=== PATIENT | male | born 1950 | race Caucasian/White ===

== ENCOUNTER → 2020-08-25 09:07 | Outpatient (BNVA) | payer MEDICARE, BC, SELFPAY | PROVIDERS: PCP Nurse Practitioner Family; Visit Provider Internal Medicine Cardiovascular Disease | DX: I42.6 Alcoholic cardiomyopathy (principal); I71.4 Abdominal aortic aneurysm, without rupture; I10 Essential (primary) hypertension | CPT/HCPCS: 99212 ==

== ENCOUNTER 2020-09-01 08:55 | Outpatient (REF) | payer MEDICARE, SELFPAY ==
--- NOTE | 2020-09-01 08:56 | XR_ITS ---
EXAMINATION: STANDING VIEWS OF BOTH KNEES AND DEDICATED VIEWS OF THE RIGHT KNEE. CLINICAL INFORMATION: Knee pain. COMPARISON: Right knee radiographs on 04/20/2020 TECHNIQUE: AP standing views of both knees. Lateral and sunrise views of the right knee. FINDINGS: No fracture or dislocation identified on standing views. Bilateral, tricompartmental degenerative changes are mild in extent. No suspicious osseous lesions identified. Dedicated views of the right knee demonstrates a small suprapatellar effusion. Again no acute osseous injury identified. Vascular calcifications are seen within the popliteal fossa. XR/XR knee RT 2V IMPRESSION: Mild degenerative changes. Small right suprapatellar effusion. No evidence of acute osseous injury.
--- NOTE | 2020-09-01 08:56 | XR_ITS ---
EXAMINATION: STANDING VIEWS OF BOTH KNEES AND DEDICATED VIEWS OF THE RIGHT KNEE. CLINICAL INFORMATION: Knee pain. COMPARISON: Right knee radiographs on 04/20/2020 TECHNIQUE: AP standing views of both knees. Lateral and sunrise views of the right knee. FINDINGS: No fracture or dislocation identified on standing views. Bilateral, tricompartmental degenerative changes are mild in extent. No suspicious osseous lesions identified. Dedicated views of the right knee demonstrates a small suprapatellar effusion. Again no acute osseous injury identified. Vascular calcifications are seen within the popliteal fossa. XR/XR knee standing BI IMPRESSION: Mild degenerative changes. Small right suprapatellar effusion. No evidence of acute osseous injury.
== END 2020-09-01 08:56 | disposition home or self-care (01) ==
LOC: HO.HOSX 08:55
PROVIDERS: Visit Provider Orthopaedic Surgery
DX: M17.11 Unilateral primary osteoarthritis, right knee (principal)
CPT/HCPCS: 73560; 73565; 99202

== ENCOUNTER → 2020-09-14 09:15 | Outpatient (REF) | payer MEDICARE, BC, SELFPAY ==
--- NOTE | 2020-09-14 09:45 | CA_ITS ---
Transthoracic Echocardiogram Patient (Last, First, Middle): Jack Monzon, Gender: Male Date of : 1950 Age: 70 Procedure Date: 09/14/2020 Procedure Type: Transthoracic Echocardiogram Location: OP Height: 172.72 cm Weight: 102.06 kg BSA: 2.15 m2 Heart Rate: bpm BP: 140 / 72 mmHg Flaker Tender: Arlet MD: Miles Chatman MD Developmental Services Worker: Christoph López MD Symptoms: I42.8 CMP Study Quality: Fair ECG Rhythm: Sinus Conclusions: - 1. Mildly reduced LV systolic function with grade 1 diastolic dysfunction 2. Normal cardiac valvular Doppler 3. No pericardial effusion Findings Left Ventricle Normal left ventricular cavity size. There is normal left ventricular wall thickness. The left ventricular systolic function is mildly decreased. The visually estimated ejection fraction is between 45-50%. There is mild global hypokinesis. Spectral Doppler is indicative of an impaired relaxation filling pattern. E/E prime ratio is <8, consistent with normal filling pressures. Evidence suggests grade I (mild) diastolic dysfunction. Right Ventricle Normal right ventricular cavity size and systolic function. Atria The left atrium is likely dilated. There is lipomatous hypertrophy of the interatrial septum. There is no evidence of interatrial shunt. The right atrium is normal in size. Aortic Valve Normal aortic valve structure and function. There is no aortic valve stenosis. There is no aortic valve regurgitation. Mitral Valve Normal mitral valve structure and function. There is trace mitral valve regurgitation. There is no mitral valve stenosis. Pulmonic Valve The pulmonic valve was not well visualized. Tricuspid Valve Likely normal tricuspid valve structure and function. Tricuspid regurgitation envelope is inadequate for calculation of right ventricular systolic pressure. Normal right atrial pressure. Great Vessels All visible segments of the aorta are normal in size. The pulmonary artery was not well visualized. Venous The inferior vena cava is normal in size and collapses greater than 50% with inspiration. Pericardium/Pleural There is no evidence of pericardial effusion. Prior Study Comparison No significant change compared to prior study dated: 03/13/2019. Measurements 2D Linear Measurements IVSd: 1.09 0.6-0.9/0.6-1.0 cm LVIDd: 5.58 3.9-5.3/4.2-5.9 cm LVIDd Index: 2.60 2.4-3.2/2.2-3.1 cm/m2 LVIDs: 4.27 2.0-3.6 cm LVPWd: 1.15 0.7-1.1 cm Ao Root: 3.30 2.1-3.5 cm LA Diam: 4.20 2.7-3.8/3.0-4.0 cm LAIDs Index: 1.95 1.5-2.3 cm/m2 LV Mass: 316.65 67-162/88-224 g LV Mass Index: 147.28 43-95/49-115 g/m2 LVOT Diam: 2.30 3.0+(-)1.3 cm 2D Systolic Function EF 4C: 37.10 >55% EF 2C: 55.70 >55% Mitral Valve MV Pk E: 0.64 MV PK A: 0.98 MV Decel Time: 255.00 E/A: 0.70 E'Lateral: 9.03 E'Medial: 5.33 E/E' Med: 12.10 E/E' Lat: 7.10 Aortic Valve AoV Pk Isaias: 1.59 AoV Mn Isaias: 1.05 AoV VTI: 0.28 AoV Pk Grad: 10.00 Aov Mn Grad: 5.00 JANETH Cont.VTI: 2.76 LVOT LVOT Pk Isaias: 0.91 LVOT Mn Isaias: 0.65 LVOT VTI: 0.18 LVOT Pk Grad: 3.00 LVOT Mn Grad: 2.00 LVOT Diam: 2.30 LVOT Area: 4.15 Diastolic Function MV Pk E: 0.64 MV Pk A: 0.98 E/A: 0.70 E'Medial: 5.33 E/E' Med: 12.10 E' Laterial: 9.03 E/E' Lat: 7.10 Tricuspid Valve RA Press: 3.00 Great Vessels Aorta Ao Root-2D: 3.30 2.0-3.7 cm Ao Asc: 3.10 2.1-3.4 cm Ao Arch: 3.20 Updated in Other Vendor System with Status of Final Christoph López MD electronically signed on 09/15/2020 4:46:09 PM with status of Final
== END ==
LOC: HO.CARD 09:15
PROVIDERS: PCP Nurse Practitioner Family; Visit Provider Internal Medicine Cardiovascular Disease
DX: I42.8 Other cardiomyopathies (principal)
CPT/HCPCS: 93306; Q9957

== ENCOUNTER → 2020-09-21 13:04 | Outpatient (BNVA) | payer MEDICARE, BC, SELFPAY | PROVIDERS: Visit Provider Physician Assistant | DX: M17.11 Unilateral primary osteoarthritis, right knee (principal) | CPT/HCPCS: 20610; 99212; J1040 ==

== ENCOUNTER → 2020-11-23 08:49 | Outpatient (BNVA) | payer MEDICARE, BC, SELFPAY | PROVIDERS: Visit Provider Internal Medicine Cardiovascular Disease | DX: I42.8 Other cardiomyopathies (principal); I10 Essential (primary) hypertension | CPT/HCPCS: 93005; 99212 ==

== ENCOUNTER → 2021-07-27 14:10 | Outpatient (BNVA) | payer MEDICARE, BC, SELFPAY | PROVIDERS: PCP Nurse Practitioner Family; Referring Provider Nurse Practitioner Family; Visit Provider Internal Medicine Cardiovascular Disease | DX: I42.8 Other cardiomyopathies (principal); I10 Essential (primary) hypertension | CPT/HCPCS: 99212 ==

== ENCOUNTER → 2021-09-25 09:17 | Outpatient (REF) | payer MEDICARE, BC, SELFPAY ==
--- NOTE | 2021-09-25 09:20 | CA_ITS ---
Transthoracic Echocardiogram Patient (Last, First, Middle): Jack Monzon, Gender: Male Date of : 1950 Age: 71 Procedure Date: 09/25/2021 Procedure Type: Transthoracic Echocardiogram Location: OP Height: 172.72 cm Weight: 101.15 kg BSA: 2.14 m2 Heart Rate: bpm BP: 130 / 80 mmHg Asian Art Curator: MARQUIS Nice MD: Miles Chatman MD Guest Service Representative: Miles Chatman MD Symptoms: I42.8 - Other cardiomyopathies Study Quality: Technically Difficult/Contrast Conclusions: - The left ventricular systolic function is low normal. The visually estimated ejection fraction is between 50-55%. - Normal right ventricular cavity size and systolic function. Findings Procedure Information Contrast agent, definity, is being given per protocol without apparent complications. Left Ventricle Normal left ventricular cavity size. There is normal left ventricular wall thickness. The left ventricular systolic function is low normal. The visually estimated ejection fraction is between 50-55%. There is no evidence of regional wall motion abnormalities. Abnormal diastolic function is noted. Spectral Doppler is indicative of an impaired relaxation filling pattern. Normal left ventricular filling pressures. Right Ventricle Normal right ventricular cavity size and systolic function. Atria Both atria are normal in size. Aortic Valve Normal aortic valve structure and function. There is no aortic valve stenosis. There is no aortic valve regurgitation. Mitral Valve Normal mitral valve structure and function. There is no mitral valve regurgitation. There is no mitral valve stenosis. Pulmonic Valve The pulmonic valve is likely normal. Tricuspid Valve Normal tricuspid valve structure and function. There is no tricuspid valve regurgitation. Normal right atrial pressure. There is no evidence of pulmonary hypertension. Great Vessels All visible segments of the aorta are normal in size. The visualized portions of the pulmonary artery and branches are normal. Venous The inferior vena cava is normal in size and collapses greater than 50% with inspiration. Pericardium/Pleural There is no evidence of pericardial effusion. Prior Study Comparison Changes noted compared to prior study dated: 09/14/2020. LVEF 50-55% now Measurements 2D Linear Measurements IVSd: 1.00 0.6-0.9/0.6-1.0 cm LVIDd: 4.87 3.9-5.3/4.2-5.9 cm LVIDd Index: 2.28 2.4-3.2/2.2-3.1 cm/m2 LVIDs: 3.79 2.0-3.6 cm LVPWd: 1.01 0.7-1.1 cm Ao Root: 3.60 2.1-3.5 cm LA Diam: 3.30 2.7-3.8/3.0-4.0 cm LAIDs Index: 1.54 1.5-2.3 cm/m2 LV Mass: 218.57 67-162/88-224 g LV Mass Index: 102.13 43-95/49-115 g/m2 LVOT Diam: 2.30 3.0+(-)1.3 cm Mitral Valve MV Pk E: 0.43 MV PK A: 0.87 MV Decel Time: 300.00 E/A: 0.50 E'Lateral: 5.66 E'Medial: 4.68 E/E' Med: 9.10 E/E' Lat: 7.60 PHT: 88.00 MVA PHT: 2.50 Decel [place]: 1.43 Aortic Valve AoV Pk Isaias: 1.23 AoV Mn Isaias: 0.78 AoV VTI: 0.21 AoV Pk Grad: 6.00 Aov Mn Grad: 3.00 JANETH Cont.VTI: 3.48 LVOT LVOT Pk Isaias: 1.08 LVOT Mn Isaias: 0.71 LVOT VTI: 0.18 LVOT Pk Grad: 5.00 LVOT Mn Grad: 2.00 LVOT Diam: 2.30 LVOT Area: 4.15 Diastolic Function MV Pk E: 0.43 MV Pk A: 0.87 E/A: 0.50 E'Medial: 4.68 E/E' Med: 9.10 E' Laterial: 5.66 E/E' Lat: 7.60 Right Ventricle TAPSE (mm): 2.14 TVS' Isaias: 11.10 Tricuspid Valve TR Pk Isaais: 1.76 TR Pk Grad: 12.00 RA Press: 3.00 RVSP: 15.00 Great Vessels Aorta Ao Root-2D: 3.60 2.0-3.7 cm Ao Asc: 3.30 2.1-3.4 cm Ao Arch: 3.00 Updated in Other Vendor System with Status of Final Miles Chatman MD electronically signed on 09/25/2021 9:00:55 PM with status of Final
== END ==
LOC: HO.CARD 09:17
PROVIDERS: Visit Provider Internal Medicine Cardiovascular Disease
DX: I42.8 Other cardiomyopathies (principal)
CPT/HCPCS: 93306; Q9957

== ENCOUNTER 2021-10-20 08:31 | Outpatient (REF) | payer MEDICARE, BC, SELFPAY ==
--- NOTE | ~2021-10-20 | XR_ITS ---
EXAMINATION: 1. STANDING AP RADIOGRAPHS OF THE BILATERAL KNEES. 2. LATERAL AND PATELLAR SUNRISE VIEWS OF THE LEFT KNEE. CLINICAL INFORMATION: Left knee pain COMPARISON: Radiographs of the bilateral knees 09/01/2020 TECHNIQUE: Standing AP views of both knees were obtained in addition to additional lateral and patellar sunrise views of the left knee. FINDINGS: No fracture or dislocation of either knee. There appears to be mild joint space narrowing of both medial joint spaces. Tiny bilateral osteophytes are noted. In particular, the left patellofemoral joint space appears well maintained. No left-sided suprapatellar joint effusion identified. Vascular calcifications are noted. XR/XR knee LT 2V IMPRESSION: Mild degenerative changes of both knees.
--- NOTE | ~2021-10-20 | XR_ITS ---
EXAMINATION: 1. STANDING AP RADIOGRAPHS OF THE BILATERAL KNEES. 2. LATERAL AND PATELLAR SUNRISE VIEWS OF THE LEFT KNEE. CLINICAL INFORMATION: Left knee pain COMPARISON: Radiographs of the bilateral knees 09/01/2020 TECHNIQUE: Standing AP views of both knees were obtained in addition to additional lateral and patellar sunrise views of the left knee. FINDINGS: No fracture or dislocation of either knee. There appears to be mild joint space narrowing of both medial joint spaces. Tiny bilateral osteophytes are noted. In particular, the left patellofemoral joint space appears well maintained. No left-sided suprapatellar joint effusion identified. Vascular calcifications are noted. XR/XR knee standing BI IMPRESSION: Mild degenerative changes of both knees.
== END 2021-10-20 08:32 | disposition home or self-care (01) ==
LOC: HO.HOSX 08:31
PROVIDERS: Visit Provider Physician Assistant
DX: M17.12 Unilateral primary osteoarthritis, left knee (principal)
CPT/HCPCS: 73560; 73565; 99212

== ENCOUNTER 2022-01-02 08:43 | Outpatient (REF) | payer MEDICARE, BC, SELFPAY ==
[2022-01-02 09:20] LABS: MANUAL DIFF FLAG NO
[2022-01-02 09:32] LABS: Basophils Percent Auto 0.7 % (0-2); Eosinophils Absolute Auto 0.2 X10*3/uL (0.0-0.4); Eosinophils Percent Auto 2.9 % (0-4); Hematocrit 46.6 % (42.0-52.0); Hemoglobin 15.8 g/dl (14.0-18.0); Imm Gran Abs Auto 0.01 X10*3/uL (0.00-0.03); Imm Gran Pct Auto 0.2 % (0.0-0.4); Lymphocytes Absolute Auto 1.6 X10*3/uL (1.2-4.9); Lymphocytes Percent Auto 26.1 % (20-40); Mean Corpuscular HGB Conc 33.9 g/dl (31.0-36.0); Mean Corpuscular Hemoglobin 32.2 pg (27.0-33.0); Mean Corpuscular Volume 95.1 fL (80.0-98.0); Mean Platelet Volume 9.6 fL (9.4-12.4); Monocytes Absolute Auto 0.6 X10*3/uL (0.1-1.2); Monocytes Percent Auto 9.6 % (2-11); Neutrophils Absolute Auto 3.6 x10*3/uL (2.0-8.3); Neutrophils Percent Auto 60.5 % (45-73); Platelet Count 150 X10*3/uL (160-400); Red Cell Distribution Width 12.9 % (11.0-16.0); White Blood Count 5.9 X10*3/uL (4.8-10.8)
[2022-01-02 09:49] LABS: Estimated Average Glucose 117 mg/dL; Hemoglobin A1c % 5.7 %
[2022-01-02 10:02] LABS: Alanine Aminotransferase 24 U/L (0-40); Albumin Level 4.1 g/dL (3.5-5.0); Alkaline Phosphatase 64 U/L (39-117); Anion Gap 14 (12-20); Aspartate Amino Transferase 22 U/L (5-37); Blood Urea Nitrogen 9 mg/dL (9-16); Calcium 9.6 mg/dL (8.4-10.2); Carbon Dioxide 23 mmol/L (22-29); Chloride 103 mmol/L (96-108); Cholesterol 143 mg/dL; Estimated Glomerular Filt Rate > 60; Glucose Random 129 mg/dL (60-115); HDL Cholesterol 44 mg/dL; LDL Cholesterol Calculated 76 mg/dl; Potassium 4.1 mmol/L (3.3-5.1); Sodium 136 mmol/L (135-145); Total Protein 7.2 g/dL (6.5-8.0); Triglycerides 118 mg/dL
[2022-01-02 10:33] LABS: Insulin 33 uU/mL (2-29); Thyroid Stimulating Hormone 2.32 uIU/mL (0.32-4.0)
[2022-01-02 10:59] LABS: Creatinine Urine 82.94 mg/dL; Microalbumin Urine < 5.0 mg/L
[2022-01-02 11:16] LABS: Prostate Specific Antigen 0.52 ng/mL (<0.05-4.0)
== END 2022-01-02 08:44 | disposition home or self-care (01) ==
LOC: HO.LAB 08:43
PROVIDERS: PCP Registered Nurse; Visit Provider Registered Nurse
DX: Z12.5 Encounter for screening for malignant neoplasm of prostate (principal); R73.01 Impaired fasting glucose; E55.9 Vitamin D deficiency, unspecified; M06.4 Inflammatory polyarthropathy; R63.5 Abnormal weight gain; E78.2 Mixed hyperlipidemia
CPT/HCPCS: 36415; 80053; 80061; 82043; 82306; 83036; 83525; 84153; 84443; 85025

== ENCOUNTER → 2022-01-08 10:04 | Outpatient (BNVA) | payer MEDICARE, BC, SELFPAY | PROVIDERS: PCP Registered Nurse; Visit Provider Internal Medicine Cardiovascular Disease | DX: I42.8 Other cardiomyopathies (principal); I10 Essential (primary) hypertension | CPT/HCPCS: 93005; 99212 ==

== ENCOUNTER → 2022-07-04 12:47 | Outpatient (BNVA) | payer MEDICARE, BC, SELFPAY | PROVIDERS: PCP Registered Nurse; Visit Provider Nurse Practitioner Family | DX: I42.8 Other cardiomyopathies (principal); I71.4 Abdominal aortic aneurysm, without rupture; I10 Essential (primary) hypertension | CPT/HCPCS: 99212 ==

== ENCOUNTER 2022-10-16 08:19 | Outpatient (REF) | payer MEDICARE, BC, SELFPAY ==
[2022-10-16 11:23] LABS: MANUAL DIFF FLAG NO
[2022-10-16 11:36] LABS: Basophils Percent Auto 0.8 % (0-2); Eosinophils Absolute Auto 0.1 X10*3/uL (0.0-0.4); Eosinophils Percent Auto 2.1 % (0-4); Hematocrit 45.4 % (42.0-52.0); Hemoglobin 15.4 g/dl (14.0-18.0); Imm Gran Abs Auto 0.01 X10*3/uL (0.00-0.03); Imm Gran Pct Auto 0.2 % (0.0-0.4); Lymphocytes Absolute Auto 1.8 X10*3/uL (1.2-4.9); Lymphocytes Percent Auto 34.4 % (20-40); Mean Corpuscular HGB Conc 33.9 g/dl (31.0-36.0); Mean Corpuscular Hemoglobin 33.2 pg (27.0-33.0); Mean Corpuscular Volume 97.8 fL (80.0-98.0); Monocytes Absolute Auto 0.6 X10*3/uL (0.1-1.2); Neutrophils Absolute Auto 2.7 x10*3/uL (2.0-8.3); Neutrophils Percent Auto 51.5 % (45-73); Platelet Count 140 X10*3/uL (160-400); Red Blood Count 4.64 X10*6/uL (4.60-5.80); White Blood Count 5.3 X10*3/uL (4.8-10.8)
[2022-10-16 11:58] LABS: Estimated Average Glucose 105 mg/dL; Hemoglobin A1c % 5.3 %
[2022-10-16 12:12] LABS: Creatinine Urine 144.47 mg/dL; Microalbum/Creatinine Ratio Ur 6.9 ug/mg cr
[2022-10-16 13:07] LABS: Alanine Aminotransferase 22 U/L (0-40); Albumin Level 4.1 g/dL (3.5-5.0); Alkaline Phosphatase 53 U/L (39-117); Anion Gap 10 (12-20); Aspartate Amino Transferase 23 U/L (5-37); Blood Urea Nitrogen 11 mg/dL (9-16); Calcium 9.4 mg/dL (8.4-10.2); Carbon Dioxide 29 mmol/L (22-29); Chloride 103 mmol/L (96-108); Cholesterol 147 mg/dL; Estimated Glomerular Filt Rate > 60; Glucose Fasting 136 mg/dL (60-99); HDL Cholesterol 49 mg/dL; LDL Cholesterol Calculated 71 mg/dl; Potassium 4.2 mmol/L (3.3-5.1); Sodium 138 mmol/L (135-145); Total Protein 6.6 g/dL (6.5-8.0); Triglycerides 139 mg/dL
[2022-10-16 13:32] LABS: Insulin 19 uU/mL (2-29); Thyroid Stimulating Hormone 3.69 uIU/mL (0.32-4.0); Vitamin D 25-OH Total 11.2 ng/mL (>30)
== END 2022-10-16 08:20 | disposition home or self-care (01) ==
LOC: HO.HMGCLDS 08:19
PROVIDERS: PCP Registered Nurse; Visit Provider Registered Nurse
DX: I25.9 Chronic ischemic heart disease, unspecified (principal); E78.00 Pure hypercholesterolemia, unspecified; M13.0 Polyarthritis, unspecified; I10 Essential (primary) hypertension; E55.9 Vitamin D deficiency, unspecified
CPT/HCPCS: 36415; 80053; 80061; 82043; 82306; 83036; 83525; 84443; 85025

== ENCOUNTER → 2022-12-19 10:07 | Outpatient (BNVA) | payer MEDICARE, BC, SELFPAY | PROVIDERS: PCP Registered Nurse; Referring Provider Registered Nurse; Visit Provider Internal Medicine Cardiovascular Disease | DX: I42.8 Other cardiomyopathies (principal); I10 Essential (primary) hypertension | CPT/HCPCS: 36415; 80048; 80076; 83880; 84443; 85027; 93005; 99212 ==

== ENCOUNTER 2022-12-19 11:06 | Outpatient (REF) | payer MEDICARE, BC, SELFPAY ==
[2022-12-19 13:49] LABS: Hematocrit 41.6 % (42.0-52.0); Hemoglobin 14.2 g/dl (14.0-18.0); Mean Corpuscular HGB Conc 34.1 g/dl (31.0-36.0); Mean Corpuscular Hemoglobin 33.2 pg (27.0-33.0); Mean Corpuscular Volume 97.2 fL (80.0-98.0); Mean Platelet Volume 9.8 fL (9.4-12.4); Platelet Count 208 X10*3/uL (160-400); Red Blood Count 4.28 X10*6/uL (4.60-5.80); Red Cell Distribution Width 12.7 % (11.0-16.0); White Blood Count 6.5 X10*3/uL (4.8-10.8)
[2022-12-19 14:14] LABS: Alanine Aminotransferase 19 U/L (0-40); Albumin Level 4.1 g/dL (3.5-5.0); Alkaline Phosphatase 57 U/L (39-117); Anion Gap 13 (12-20); Aspartate Amino Transferase 20 U/L (5-37); Bilirubin Direct 0.3 mg/dL (0.0-0.5); Bilirubin Total 0.8 mg/dL (0.0-1.0); Blood Urea Nitrogen 7 mg/dL (9-16); Calcium 9.2 mg/dL (8.4-10.2); Carbon Dioxide 26 mmol/L (22-29); Chloride 103 mmol/L (96-108); Estimated Glomerular Filt Rate > 60; Glucose Random 129 mg/dL (60-115); Potassium 3.9 mmol/L (3.3-5.1); Sodium 138 mmol/L (135-145); Total Protein 6.6 g/dL (6.5-8.0)
[2022-12-19 14:30] LABS: TSH reflex Free T4 2.24 uIU/mL (0.32-4.0)
[2022-12-24 17:44] LABS: NT-proBNP 233 pg/mL
== END 2022-12-19 11:07 | disposition home or self-care (01) ==
LOC: HO.10HDL 11:06
PROVIDERS: Visit Provider Internal Medicine Cardiovascular Disease
DX: Z13.89 Encounter for screening for other disorder (principal)
CPT/HCPCS: 36415; 80048; 80076; 83880; 84443; 85027

== ENCOUNTER → 2023-01-01 08:46 | Outpatient (REF) | payer MEDICARE, BC, SELFPAY ==
--- NOTE | 2023-01-01 08:49 | CA_ITS ---
Transthoracic Echocardiogram Patient (Last, First, Middle): Jack Monzon, Gender: Male Date of : 1950 Age: 72 Procedure Date: 01/01/2023 Procedure Type: Transthoracic Echocardiogram Location: OP Height: 172.72 cm Weight: 102.51 kg BSA: 2.15 m2 Heart Rate: 60 bpm BP: 130 / 70 mmHg Stage Rigger: CHERELLE Nice MD: Miles Chatman MD Ship Keeper: Miles Chatman MD Symptoms: I42.8 - Other cardiomyopathies Study Quality: Fair/Contrast Conclusions: - Normal left ventricular cavity size. There is mildly increased left ventricular wall thickness. The left ventricular systolic function is mild to moderately decreased. The visually estimated ejection fraction is between 35-40%. Findings Procedure Information Contrast agent, definity, is being given per protocol without apparent complications. Left Ventricle Normal left ventricular cavity size. There is mildly increased left ventricular wall thickness. The left ventricular systolic function is mild to moderately decreased. The visually estimated ejection fraction is between 35-40%. Abnormal diastolic function is noted. Spectral Doppler is indicative of an impaired relaxation filling pattern. E/E prime ratio is between 8 and 15 consistent with indeterminate filling pressures. Right Ventricle Normal right ventricular cavity size. There is low normal right ventricular systolic function. Atria The left atrium is normal in size. The right atrium is normal in size. Aortic Valve Normal aortic valve structure and function. There is no aortic valve stenosis. There is no aortic valve regurgitation. Mitral Valve The mitral valve appears normal. There is trace mitral valve regurgitation. There is no mitral valve stenosis. Pulmonic Valve The pulmonic valve is likely normal. There is no pulmonic valve regurgitation. Tricuspid Valve Likely normal tricuspid valve structure and function. Tricuspid regurgitation envelope is inadequate for calculation of right ventricular systolic pressure. Normal right atrial pressure. Great Vessels There is mild dilatation of the sinuses of Valsalva measuring 4.00 cm. Venous The inferior vena cava is normal in size and collapses greater than 50% with inspiration. Pericardium/Pleural There is no evidence of pericardial effusion. Prior Study Comparison Changes noted compared to prior study dated: 09/25/2021. EF 35 to 40% Measurements 2D Linear Measurements IVSd: 1.10 0.6-0.9/0.6-1.0 cm LVIDd: 5.00 3.9-5.3/4.2-5.9 cm LVIDd Index: 2.33 2.4-3.2/2.2-3.1 cm/m2 LVIDs: 3.50 2.0-3.6 cm LVPWd: 1.01 0.7-1.1 cm LA Diam: 3.20 2.7-3.8/3.0-4.0 cm LAIDs Index: 1.49 1.5-2.3 cm/m2 LV Mass: 243.80 67-162/88-224 g LV Mass Index: 113.40 43-95/49-115 g/m2 LVOT Diam: 2.50 3.0+(-)1.3 cm 2D Systolic Function EF 4C: 56.10 >55% EF 2C: 62.10 >55% Mitral Valve MV Pk E: 0.52 MV PK A: 0.98 MV Decel Time: 312.00 E/A: 0.50 E'Lateral: 6.48 E'Medial: 4.82 E/E' Med: 10.90 E/E' Lat: 8.10 PHT: 91.00 MVA PHT: 2.42 Decel [place]: 1.68 Aortic Valve AoV Pk Isaias: 1.29 AoV Mn Isaias: 0.85 AoV VTI: 0.30 AoV Pk Grad: 7.00 Aov Mn Grad: 3.00 JANETH Cont.VTI: 3.46 LVOT LVOT Pk Isaias: 0.95 LVOT Mn Isaias: 0.67 LVOT VTI: 0.21 LVOT Pk Grad: 4.00 LVOT Mn Grad: 2.00 LVOT Diam: 2.50 LVOT Area: 4.91 Diastolic Function MV Pk E: 0.52 MV Pk A: 0.98 E/A: 0.50 E'Medial: 4.82 E/E' Med: 10.90 E' Laterial: 6.48 E/E' Lat: 8.10 Right Ventricle TAPSE (mm): 18.60 TVS' Isaias: 10.30 Tricuspid Valve RA Press: 3.00 Great Vessels Aorta Sinus of Valsalva: 4.00 2.0-3.5 cm Ao Asc: 3.40 2.1-3.4 cm Pulmonary Valve PV Pk Siaias: 0.69 Peak PV Grad: 2.00 Updated in Other Vendor System with Status of Final Miles Compa MD electronically signed on 01/02/2023 12:24:58 PM with status of Final
== END ==
LOC: HO.CARD 08:46
PROVIDERS: Visit Provider Internal Medicine Cardiovascular Disease
DX: I42.8 Other cardiomyopathies (principal)
CPT/HCPCS: 93306; Q9957

== ENCOUNTER → 2023-03-27 14:18 | Outpatient (BNVA) | payer MEDICARE, BC, SELFPAY | PROVIDERS: PCP Registered Nurse; Referring Provider Registered Nurse; Visit Provider Internal Medicine Cardiovascular Disease | DX: I42.8 Other cardiomyopathies (principal); I42.6 Alcoholic cardiomyopathy; F10.20 Alcohol dependence, uncomplicated; I71.40 Abdominal aortic aneurysm, without rupture, unspecified; I10 Essential (primary) hypertension; Z98.890 Other specified postprocedural states | CPT/HCPCS: 99212 ==

== ENCOUNTER 2023-04-12 08:42 | Outpatient (REF) | payer MEDICARE, BC, SELFPAY ==
[2023-04-12 12:05] LABS: Anion Gap 15 (12-20); Blood Urea Nitrogen 10 mg/dL (9-16); Carbon Dioxide 26 mmol/L (22-29); Chloride 104 mmol/L (96-108); Estimated Glomerular Filt Rate > 60; Glucose Random 117 mg/dL (60-115); Potassium 4.4 mmol/L (3.3-5.1); Sodium 141 mmol/L (135-145)
== END 2023-04-12 08:43 | disposition home or self-care (01) ==
LOC: HO.HMGCLDS 08:42
PROVIDERS: PCP Registered Nurse; Visit Provider Internal Medicine Cardiovascular Disease
DX: I42.8 Other cardiomyopathies (principal)
CPT/HCPCS: 36415; 80048

== ENCOUNTER 2023-08-05 10:23 | Outpatient (AMB) | payer MEDICARE, BC, SELFPAY ==
[2023-08-05 10:30] VITALS: BP 150/76; PULSE 88; BMI 33.6
--- NOTE | 2023-08-05 10:30 | MHC.OFFVIS ---
Intake Vital Signs 08/05/23 10:30 Height 5 ft 8 in Weight 220 lb 14.451 oz BMI 33.6 BP 150/76 H Blood Pressure Location Lt brachial Position Sitting Pulse 88 Intake Visit Reasons: 4 mth f/up Intake Note: 4 month follow up Network Consultant Required: No Accompanied by: Self / Same As Patient Allergies lisinopril Allergy (Unknown, Verified 08/05/23 10:32) cough, can't sleep Medication List - Last Reconciled 08/05/23 by Miles Chatman MD aspirin 81 mg PO DAILY docusate sodium 100 mg PO BID losartan 25 mg PO DAILY metformin 500 mg PO BID metoprolol succinate ER 25 mg PO DAILY omeprazole 20 mg PO DAILY PRN simvastatin 20 mg PO QPM spironolactone 12.5 mg (1/2 x 25 mg) PO DAILY HPI HPI Comments History of Present Illness Details Pleasant 72-year-old gentleman here for follow-up. 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 His ejection fraction improved to 45% previously after cutting back on alcohol significantly. Repeat echocardiogram was showing EF of 50-55%. Return for follow-up and was drinking more heavily and was feeling short of breath. We sent him for repeat echocardiography which showed EF of 35-40%. He was advised to cut back on drinking and his medications were adjusted. He had abdominal aortic aneurysm and underwent EVAR by Dr. Elizondo. He is saying he has been doing well. He has no active symptoms right now. He continues to drink wine. He has cut back on beer. 08/05/23: He is here for follow-up. His blood pressure in the office is elevated. Previous echocardiogram was in December 2022 when EF was 35-40%. He is saying he went to his primary care physician's office and his blood pressure was elevated there to. Unfortunately he has been drinking wine. Denying any heart failure symptoms otherwise. FORMERLY [facility], 1928–1983 Medical History GERD (gastroesophageal reflux disease) Hypercholesterolemia AAA (abdominal aortic aneurysm) Other cardiomyopathies Adenomatous polyp of colon History of cardiomyopathy Former smoker Abdominal obesity Surgical History History of AAA (abdominal aortic aneurysm) repair History of cholecystectomy H/O colonoscopy Family History Father No problems noted. Mother No problems noted. Family/Other Melanoma Diabetes Hypertension Social History Alcohol intake: current Alcohol intake frequency: 0-2 drinks per day Alcohol type: beer, wine and hard liquor Patient Tobacco Use Status: Former Tobacco user Quit Date: 2000 Years Smoked: 35 +/- Substance Use Type: Marijuana Current occupational status: retired Current occupation: Right Handed Review of Systems Const Denies weakness ENT Denies dizziness Card Denies chest pain, Denies chest pain with activity, Denies syncope, Denies rapid heart rate, Denies pedal edema, Denies edema, Denies leg edema, Denies lightheadedness, Denies palpitations, Denies dyspnea, Denies dyspnea on exertion and Denies orthopnea Resp Denies cough, Denies dyspnea and Denies dyspnea on exertion GI Denies hematochezia and Denies change in stool character Musc Denies abnormal gait, Denies muscle cramps, Denies muscle weakness, Denies numbness, Denies radiating pain into limb and Denies tingling Neuro Denies abnormal gait, Denies dizziness, Denies syncope, Denies numbness, Denies tingling and Denies weakness Endo Denies palpitations Physical Exam Vital Signs: Last Vital Signs Pulse 88 08/05/23 10:30 BP 150/76 H 08/05/23 10:30 BMI result Body Mass Index 33.6 GENERAL APPEARANCE: in no acute distress, well developed, well nourished. NECK/THYROID: no carotid bruit, no jugular venous distention. SKIN: no suspicious lesions, warm and dry. HEART: no murmurs, regular rate and rhythm, S1, S2 normal. LUNGS: clear to auscultation bilaterally. ABDOMEN: normal, bowel sounds present, soft, nontender, nondistended. EXTREMITIES: no clubbing, cyanosis, or edema. PERIPHERAL PULSES: equal. NEUROLOGIC: nonfocal, alert and oriented. PSYCH: mood/affect full range. Assessment & Plan Assessment & Plan (1) NICM (nonischemic cardiomyopathy): Comment: Secondary to alcoholism Code(s): I42.8 - Other cardiomyopathies (2) Hypertension: Code(s): I10 - Essential (primary) hypertension Qualifiers: Hypertension type: essential hypertension Qualified Code(s): I10 - Essential (primary) hypertension Plan 72-year-old gentleman with known ischemic cardiomyopathy secondary to alcoholism. He continues to drink unfortunately and has been drinking more wine recently. His blood pressure has been more elevated and I think this is related with alcohol intake. Increasing losartan to 50 mg once a day. He will come back in 2 weeks for blood pressure check. I have explained to him that he already has [id number] LV dysfunction and if he continues to drink alcohol then he may not have full recovery of his heart function and has risk of worsening LV dysfunction. Follow-up with us otherwise in 3 months. Blood pressure check in 2 weeks with RN. Thank you for allowing me to participate in the care of your patient. Please feel free to contact me if you have any questions. Medications: New losartan 50 mg PO DAILY 60 tabs 3RF Discontinued losartan Discontinued Reason: Doctor's Order 25 mg PO DAILY 90 tabs 2RF Coding Level of Care Code Est Pt Level 4 (18543) Diagnoses NICM (nonischemic cardiomyopathy) I42.8 Essential hypertension I10 Hypertension type: essential hypertension
== END 2023-08-05 10:52 | disposition home or self-care (01) ==
PROVIDERS: PCP Registered Nurse; Visit Provider Internal Medicine Cardiovascular Disease
DX: I42.8 Other cardiomyopathies (principal); I10 Essential (primary) hypertension
CPT/HCPCS: 99214

== ENCOUNTER → 2023-08-05 10:23 | Outpatient (BNVA) | payer MEDICARE, BC, SELFPAY | PROVIDERS: PCP Registered Nurse; Visit Provider Internal Medicine Cardiovascular Disease | DX: I42.8 Other cardiomyopathies (principal); I10 Essential (primary) hypertension | CPT/HCPCS: 99212 ==

== ENCOUNTER → 2023-08-19 09:45 | Outpatient (BNVA) | payer MEDICARE, BC, SELFPAY | PROVIDERS: PCP Registered Nurse; Visit Provider Internal Medicine Cardiovascular Disease | DX: Z01.89 Encounter for other specified special examinations (principal) | CPT/HCPCS: 99211 ==

== ENCOUNTER 2023-11-11 09:54 | Outpatient (AMB) | payer MEDICARE, BC, SELFPAY ==
[2023-11-11 10:07] VITALS: BP 132/68; PULSE 57; BMI 34.7
--- NOTE | 2023-11-11 10:07 | A.OFFVIS_ITS ---
Intake Vital Signs 11/11/23 10:07 Height 5 ft 8 in Weight 227 lb 15.327 oz BMI 34.7 BP 132/68 Blood Pressure Location Lt brachial Position Sitting Pulse 57 Pulse Source Pulse Oximeter Intake Visit Reasons: 3 Months follow up (KM) [place] Required: No Allergies lisinopril Allergy (Unknown, Verified 11/11/23 10:09) cough, can't sleep Medication List - Last Reviewed 11/11/23 by Amber Hall aspirin 81 mg PO DAILY losartan 50 mg PO DAILY metformin 500 mg PO BID metoprolol succinate ER 25 mg PO DAILY omeprazole 20 mg PO DAILY PRN simvastatin 20 mg PO QPM spironolactone 12.5 mg (1/2 x 25 mg) PO DAILY 90 days HPI 3 Months follow up (KM) HPI Details Jakc is a 73-year-old male with past medical history of hyperlipidemia, hypertension, prior smoking, daily alcohol use, abdominal aortic aneurysms status post stent graft repair, nonischemic cardiomyopathy who presents for follow-up. Today he reports he has been doing well since his last visit in July. He denies any concerning symptoms. No chest discomfort at rest or with activity. No shortness of breath, palpitations, lightheadedness, presyncope, syncope, PND, orthopnea or edema. He is taking all meds as directed. He admits to drinking either beer or wine daily. He also is using marijuana each night. Tolerates normal ADLs without difficulty. [facility] Medical History GERD (gastroesophageal reflux disease) Hypercholesterolemia AAA (abdominal aortic aneurysm) Other cardiomyopathies Adenomatous polyp of colon History of cardiomyopathy Former smoker Abdominal obesity Surgical History History of AAA (abdominal aortic aneurysm) repair History of cholecystectomy H/O colonoscopy Family History Father No problems noted. Mother No problems noted. Family/Other Melanoma Diabetes Hypertension Social History Alcohol intake: current Alcohol intake frequency: 0-2 drinks per day Alcohol type: beer, wine and hard liquor Patient Tobacco Use Status: Former Tobacco user Quit Date: 2000 Years Smoked: 35 +/- Substance Use Type: Marijuana Current occupational status: retired Current occupation: Right Handed Review of Systems Const All systems reviewed & are unremarkable except as noted in HPI and below ENT Denies dizziness Card Denies chest pain, Denies chest pain at rest, Denies chest pain with activity, Denies rapid heart rate, Denies pedal edema, Denies edema, Denies leg edema, Denies lightheadedness, Denies palpitations, Denies dyspnea, Denies dyspnea on exertion and Denies orthopnea Resp Denies cough, Denies dyspnea and Denies dyspnea on exertion GI Denies hematochezia and Denies change in stool character Musc Denies abnormal gait, Denies limited range of motion, Denies muscle cramps, Denies muscle weakness, Denies numbness, Denies radiating pain into limb, Denies stiffness and Denies tingling Neuro Denies abnormal gait, Denies dizziness, Denies numbness and Denies tingling Endo Denies palpitations Physical Exam Vital Signs: BMI result Body Mass Index 34.7 Const General: cooperative, healthy appearing, comfortable and no acute distress Orientation/consciousness: patient oriented x3 Neck Neck: Yes normal visual inspection Resp Effort & Inspection: normal respiratory effort Auscultation: clear to auscultation bilaterally, no crackles, no rales, no rhonchi and no wheezes Cardio Jugular venous distension: no JVD Rate: regular rate Rhythm: regular rhythm Heart sounds: S1 normal heart sound present, S2 normal heart sound present, no murmurs and no rubs Neuro General: patient oriented x3 Extrem General: Yes normal to inspection and No no pedal edema Psych Appearance: grossly normal Mental Status: mental status grossly normal Speech and movement: Normal speech and movement present Office Procedures EKG Details: Today, read by me, normal sinus rhythm, nonspecific ST and T-wave abnormality, rate 85, QTC 449 milliseconds [id number], Complete Assessment & Plan Assessment & Plan (1) NICM (nonischemic cardiomyopathy): Comment: Secondary to alcoholism Code(s): I42.8 - Other cardiomyopathies Plan: History of nonischemic cardiomyopathy most likely related to alcohol use. His EF did improve in the past when he stopped alcohol intake. Last echo done 01/01/2023 showed EF 35-40%, mild LVH. At that time he reported drinking wine daily. Today he reports ongoing alcohol use either wine or beer on a daily basis. He also admits to smoking marijuana each night. On examination today with no clinical signs of heart failure. He denies having shortness of breath with activity, PND, orthopnea or leg edema. EKG done today showing normal sinus rhythm with nonspecific ST and T-wave abnormality, overall unchanged from last EKG. Will update echocardiogram to re-evaluate EF. Plan to call him with results. Continue on losartan and metoprolol XL for neurohormonal modulation. Continue Aldactone, aspirin and simvastatin. Will update labs including CMP and lipids. Order placed and patient notified. Signs and symptoms of heart failure reviewed with him. Cardiology follow-up 6 months, sooner if needed. (2) Alcohol use: Code(s): Z78.9 - Other specified health status Plan: Daily as above. Patient informed this visit that his alcohol use is most likely contributing to his weak heart. (3) AAA (abdominal aortic aneurysm): Code(s): I71.4 - Abdominal aortic aneurysm, without rupture Qualifiers: Abdominal aorta location: unspecified Presence of rupture: without rupture Qualified Code(s): I71.40 - Abdominal aortic aneurysm, without rupture, unspecified Plan: History of abdominal aortic aneurysm. Underwent EVAR with Dr. Shukla at [facility] on 02/19/2023. CT scan of the chest on 05/22/2023 showed stent graft repair of the abdominal aortic aneurysm with no endoleak or complication. Today he denies any abdominal discomfort. He tells me he will be having an ultrasound at [facility] in the near future to check on the status of his AAA stent. (4) Hypertension: Code(s): I10 - Essential (primary) hypertension Qualifiers: Hypertension type: essential hypertension Qualified Code(s): I10 - Essential (primary) hypertension Plan: Well controlled at this time. Continue current management with losartan, Aldactone and metoprolol Plan Time spent on chart review, documentation, interview, assessment Orders: Orders Comprehensive Met. Panel Today I42.8 - Other cardiomyopathies CA echo transthorac w con Today I42.8 - Other cardiomyopathies Lipid Panel Today I42.8 - Other cardiomyopathies, I71.4 - Abdominal aortic aneurysm, without rupture Coding Level of Care Code Est Pt Level 4 (55701) Diagnoses NICM (nonischemic cardiomyopathy) I42.8 Alcohol use Z78.9 Abdominal aortic aneurysm (AAA) without rupture, unspecified part I71.40 Abdominal aorta location: unspecified Presence of rupture: without rupture Essential hypertension I10 Hypertension type: essential hypertension CPT Codes EKG - CPT: 13837-[id number], Complete ([id number]) Time Spent (min) 28
== END 2023-11-11 10:35 | disposition home or self-care (01) ==
PROVIDERS: PCP Registered Nurse; Visit Provider Nurse Practitioner Family
DX: I42.8 Other cardiomyopathies (principal); Z78.9 Other specified health status; I71.40 Abdominal aortic aneurysm, without rupture, unspecified; I10 Essential (primary) hypertension
CPT/HCPCS: 93010; 99214

== ENCOUNTER → 2023-11-11 09:54 | Outpatient (BNVA) | payer MEDICARE, BC, SELFPAY | PROVIDERS: PCP Registered Nurse; Visit Provider Nurse Practitioner Family | DX: I42.8 Other cardiomyopathies (principal); I71.40 Abdominal aortic aneurysm, without rupture, unspecified; I10 Essential (primary) hypertension; Z78.9 Other specified health status | CPT/HCPCS: 93005; 99212 ==

== ENCOUNTER → 2023-11-14 10:47 | Outpatient (REF) | payer MEDICARE, BC, SELFPAY ==
--- NOTE | 2023-11-14 10:49 | CA_ITS ---
Transthoracic Echocardiogram Patient (Last, First, Middle): Jack Monzon, Gender: Male Date of : 1950 Age: 73 Procedure Date: 11/14/2023 Procedure Type: Transthoracic Echocardiogram Location: OP Height: 172.72 cm Weight: 102.06 kg BSA: 2.15 m2 Heart Rate: bpm BP: 132 / 64 mmHg Athletic Coordinator: VIVEK Referring MD: Isela Thompson BREWERY TECHNICIAN-[employer] Software Architect: Christoph López MD Symptoms: I42.8 - Other cardiomyopathies Study Quality: Technically Difficult, contrast ECG Rhythm: Sinus Conclusions: - 1. Technically limited study despite use of contrast agent 2. Mildly reduced LV ejection fraction 45-50% with grade 1 diastolic dysfunction 3. Limited cardiac valvular evaluation Findings Left Ventricle The left ventricle was not well visualized. Normal left ventricular cavity size. There is normal left ventricular wall thickness. The left ventricular systolic function is mildly decreased. Spectral Doppler is indicative of an impaired relaxation filling pattern. E/E prime ratio is <8, consistent with normal filling pressures. Evidence suggests grade I (mild) diastolic dysfunction. Right Ventricle Mildly increased right ventricular cavity size. There is normal right ventricular systolic function. Atria The left atrium was not well visualized. Interatrial shunt cannot be excluded. The right atrium was not well visualized. Aortic Valve The aortic valve was not well visualized. There is no aortic valve stenosis. There is no aortic valve regurgitation. Mitral Valve The mitral valve was not well visualized. There is no mitral valve regurgitation. There is no mitral valve stenosis. Pulmonic Valve The pulmonic valve was not well visualized. Tricuspid Valve The tricuspid valve was not well visualized. Great Vessels The aorta was not well visualized. The pulmonary artery was not well visualized. Venous The inferior vena cava is normal in size. Pericardium/Pleural The pericardium was not well visualized. Prior Study Comparison Changes noted compared to prior study dated: 01/01/2023. LV systolic function is marginally improved. Delay in reporting due to technical issues Measurements 2D Linear Measurements IVSd: 1.05 0.6-0.9/0.6-1.0 cm LVIDd: 5.22 3.9-5.3/4.2-5.9 cm LVIDd Index: 2.43 2.4-3.2/2.2-3.1 cm/m2 LVIDs: 3.65 2.0-3.6 cm LVPWd: 0.95 0.7-1.1 cm LA Diam: 3.70 2.7-3.8/3.0-4.0 cm LAIDs Index: 1.72 1.5-2.3 cm/m2 LV Mass: 243.50 67-162/88-224 g LV Mass Index: 113.25 43-95/49-115 g/m2 LVOT Diam: 2.50 3.0+(-)1.3 cm 2D Systolic Function EF 4C: 49.80 >55% EF 2C: 48.90 >55% EF BiP: 49.40 >55% Mitral Valve MV Pk E: 0.41 MV PK A: 1.03 MV Decel Time: 199.00 E/A: 0.40 E'Lateral: 8.38 E'Medial: 4.68 E/E' Med: 8.70 E/E' Lat: 4.90 PHT: 58.00 MVA PHT: 3.79 Decel Lawrence: 2.05 Aortic Valve AoV Pk Isaias: 1.06 AoV Mn Isaias: 0.77 AoV VTI: 0.23 AoV Pk Grad: 4.00 Aov Mn Grad: 3.00 JANETH Cont.VTI: 3.96 LVOT LVOT Pk Isaias: 1.04 LVOT Mn Isaias: 0.67 LVOT VTI: 0.18 LVOT Pk Grad: 4.00 LVOT Mn Grad: 2.00 LVOT Diam: 2.50 LVOT Area: 4.91 Diastolic Function MV Pk E: 0.41 MV Pk A: 1.03 E/A: 0.40 E'Medial: 4.68 E/E' Med: 8.70 E' Laterial: 8.38 E/E' Lat: 4.90 Right Ventricle TAPSE (mm): 23.60 TVS' Isaias: 10.00 Tricuspid Valve RA Press: 3.00 Great Vessels Aorta Sinus of Valsalva: 4.00 2.0-3.5 cm Ao Asc: 3.40 2.1-3.4 cm Updated in Other Vendor System with Status of Final Christoph López MD electronically signed on 11/15/2023 2:09:25 PM with status of Final
== END ==
LOC: HO.CARD 10:47
PROVIDERS: PCP Registered Nurse; Visit Provider Nurse Practitioner Family
DX: I42.8 Other cardiomyopathies (principal)
CPT/HCPCS: 93306; Q9957

== ENCOUNTER → 2023-11-14 10:49 | Outpatient (BNV) | payer MEDICARE, BC, SELFPAY | PROVIDERS: PCP Registered Nurse; Visit Provider Internal Medicine Cardiovascular Disease | DX: I42.8 Other cardiomyopathies (principal) | CPT/HCPCS: 93306 ==

== ENCOUNTER 2024-04-14 08:20 | Outpatient (AMB) | payer MEDICARE, BC, SELFPAY ==
--- NOTE | 2024-04-14 08:25 | A.OFFPC_ITS ---
Vital Signs 04/14/24 08:27 Height 5 ft 8 in Weight 226 lb 6 oz BMI 34.4 BP 138/70 Blood Pressure Location Rt brachial Position Sitting Respiration 12 Pulse 82 Pulse Source Pulse Oximeter Pulse Oximetry (%) 96 Oxygen Delivery Method Room Air Intake Visit Reasons: Establish Care Intake Note: Patient is here with his spouse to establish care. Patient reports he has no concerns at this time. Juice Scaleman Required: No Accompanied by: Spouse Allergies lisinopril Allergy (Unknown, Verified 04/14/24 08:42) cough, can't sleep Medication List - Last Reconciled 04/14/24 by Lillie Delarosa, RADIO ANNOUNCER- aspirin 81 mg PO DAILY losartan 50 mg PO DAILY metformin 500 mg PO BID metoprolol succinate ER 25 mg PO DAILY omeprazole 20 mg PO DAILY PRN simvastatin 20 mg PO QPM spironolactone 12.5 mg (1/2 x 25 mg) PO DAILY 90 days Tobacco use date assessed: 04/14/24 Fall risk assessment: No Falls in past year Last assessed Fall Risk: 04/14/24 Dental Screening Dental Screen Date: 04/14/24 Did you have a dental visit in the last 12 months?: Yes Did you have a dental problem in the last 6 months where you did not have access to dental care?: No Was dental information given to patient?: Patient has dentist HPI HPI Comments History of Present Illness Details 73-year-old male [place] [employer] with agent orange exposure, hyperlipide clifford, CAD, PVD, hypertension, prior smoking, daily alcohol use, abdominal aortic aneurysms status post stent graft repair 02/2023, nonischemic cardiomyopathy, obese, GERD, marijuana use, COPD, BPH, diverticulosis, umbilical hernia, indirect left inguinal hernia, hepatic steatosis Status post cholecystectomy Health Maintenance: ? Colon + polyp ? PSA ordered today, results pending ? Tdap 07/2021, declined Shingles vaccine, recommended PCV sereies Lung cancer screening discussed today: Quit 2000 smoking 1.5 per day x 34 years, referred today for screening. Specialists: Cards appt next month Vascular Dr Felipa Shukla Here to est care for chronic conditions. His medical chart was reviewed prior to the visit today. Overall he feels like he is in good health. He does not like going for tests, looking for problems, or taking medications he does not have to. Be that as it may he is tolerating compliant of his current therapies. He is longstanding history of daily EtOH use. Over the last few months he Has reduced etoh intake, now drinking 2 days/week instead of 7; thought sleep was dependent on etoh intake. Cont to have poor sleep. Discussed sleep study and declined stating he cannot have anything on his face. Aware this is a possibility but no interest @ this time. Routine f/u with Cards Routine f/u with vascular for AAA repair monitoring, reports needing appt 10 months since last visit,next appt Oct 2024 US imaging to be done Was started on Metformin by previous PCP for insulin resistance, lab review shows A1c 5.3-5.7% Denies GI upset w/ Metformin. Also noted to have hepatic steatosis. Patient would really like to come off the metformin if hospital. BMI > 34 Reports wt stable. Quit 2000 smoking 1.5 per day x 34 years - reluctantly willing to undergo lung cancer screening EXAM: Awake alert NAD accompanied by scleras nonciteric bilat MMM RRR LS with faint ins wheeze throughout Abd soft, + hepatomegaly, nontender No edema BLE, skin hairless, white crusty papules noted bilat lower ext, decreased PP bilat Mood and affect appropriate Labs from today show normal electrolytes, normal renal function, random glucose 173, hemoglobin A1c 5.7%, normal LFTs, vitamin B12 193, folate 3.3, normal urine microalbumin creatinine ratio, LDL and PSA pending at this time Plan: Lung cancer screening Discussed staying on Metformin d/t IFG at the very least and hepatic steatosis. Given a hemoglobin A1c of 5.7% today the decision will be made to discontinue the metformin 500 p.o. b.i.d.. Start metformin ER 750 mg p.o. q.p.m.. Start folic acid 1 mg p.o. daily and B12 1000 mcg p.o. daily Continue follow up with Cardiology and vascular. Continue all her medications without change at this time. LDL goals less than 70, statin is managed by vascular Return to the office in 6 months with fasting labs done 1 week before, sooner as needed. [facility] Medical History (Updated 04/14/24 @ 14:39 by Lillie Delarosa, ARPITA-) Umbilical hernia Indirect left inguinal hernia Diverticulosis Chronic knee pain Osteoarthritis of right knee Osteoarthritis of left knee GERD (gastroesophageal reflux disease) Hypercholesterolemia AAA (abdominal aortic aneurysm) Other cardiomyopathies Adenomatous polyp of colon History of cardiomyopathy Former smoker Abdominal obesity Surgical History History of AAA (abdominal aortic aneurysm) repair History of cholecystectomy H/O colonoscopy Family History Father No problems noted. Mother No problems noted. Family/Other Melanoma Diabetes Hypertension Social History (Updated 04/14/24 @ 08:37 by Annika Castro CMA) Household Members: Spouse Housing: House 75 years or older and lives alone: No Alcohol intake: current Alcohol intake frequency: 0-2 drinks per day Alcohol type: beer, wine and hard liquor Patient Tobacco Use Status: Former Tobacco user Cigarette Packs Per Day: 1 Years Smoked: 35 +/- e-Cigarette/Vaping Use: Never Used Substance Use Type: Marijuana service: Yes ([employer] 4 years) Current occupational status: retired Current occupation: Right Handed Current occupational exposures/hazards: No Cognitive needs: No Hearing needs: Yes (Hearing aids ) Vision needs: No Questionnaire PHQ-9 Over the last 2 weeks, how often have you been bothered by any of the following problems? 1. Little interest or pleasure in doing things: not at all 2. Feeling down, depressed, or hopeless: not at all 3. Trouble falling or staying asleep, or sleeping too much: not at all 4. Feeling tired or having little energy: not at all 5. Poor appetite or overeating: not at all 6. Feeling bad about yourself - or that you are a failure or have let yourself or your family down: not at all 7. Trouble concentrating on things, such as reading the newspaper or watching television: not at all 8. Moving or speaking so slowly that other people could have noticed. Or the opposite - being so fidgety or restless that you have been moving around a lot more than usual: not at all 9. Thoughts that you would be better off or of hurting yourself in some way: not at all Total score: 0 Depression Screening Interpretation: Negative Depression Screening Done: Yes 06027 - PHQ-9 Billing: Yes Source: Developed by Prudencio Swanet B.W. Ethan, Shay Britton and colleagues, with an educational alla from [employer]. Thrive Questionnaire Date Thrive assessed: 04/14/24 I am a: Patient What is your living situation today?: I choose not to answer this question Within the past 12 months, did the food you bought not last and you didn't have the money to get more?: I choose not to answer this question Within the past 12 months, did you worry whether your food would run out before you got money to buy more?: I choose not to answer this question Do you have trouble paying for medicines?: I choose not to answer this question Do you have trouble getting transportation to medical appointments?: I choose not to answer this question Do you have trouble paying your heating and electricity bill?: I choose not to answer this question Do you have trouble taking care of your child, family member or friend?: I choose not to answer this question Do you have trouble with day-to-day activities such as bathing, preparing meals, shopping, managing finances, etc.?: I choose not to answer this question Are you currently unemployed and looking for a job?: I choose not to answer this question Are you interested in more education?: I choose not to answer this question Please select the resources that you would like help with: None Currently or been in a relationship where the following occur: No concerns reported THRIVE Score: 0 AUDIT C Alcohol Use Questionnaire (AUDIT-C) 1. How often do you have a drink containing alcohol?: Monthly or less 2. How many drinks containing alcohol do you have on a typical day when you are drinking?: 1 or 2 3. How often do you have six or more drinks on one occasion?: Never Total Score: 1 Score Reviewed/Action Taken: Yes HERMINIA-7 AMB Questionnaire HERMINIA-7 Date HERMINIA - 7 assessed: 04/14/24 Feeling nervous, anxious, or on edge: 0 = Not at all Not being able to stop or control worryin = Not at all Worrying too much about different things: 0 = Not at all Trouble relaxin = Not at all Being so restless that it is hard to sit still: 0 = Not at all Becoming easily annoyed or irritable: 0 = Not at all Feeling afraid as if something awful might happen: 0 = Not at all Total HERMINIA-7 score (0-4 normal; 5-9 mild; 10-14 moderate; 15-21 severe): 0 Source: Developed by Drs. Bulmaro Philippe, Mounika Long, Shay Britton and colleagues, with an educational alla from [employer]. HERMINIA-7 Assessment Billing HERMINIA-7 Assessment Tool: HERMINIA-7 Assessment 84853 Physical exam (Primary Care) Vital Signs: Last Vital Signs Pulse 82 04/14/24 08:27 Resp 12 04/14/24 08:27 BP 138/70 04/14/24 08:27 Pulse Ox 96 04/14/24 08:27 Oxygen Delivery Method Room Air 04/14/24 08:27 BMI result Body Mass Index 34.4 BMI Assessment/Plan discussion: High BMI High, discussed plan: lifestyle Tobacco/Smoking Status: Tobacco use Status Tobacco use date assessed 04/14/24 04/14/24 08:38 Patient Tobacco Use Status Former Tobacco user 04/14/24 08:37 e-Cigarette/Vaping Use Never Used 04/14/24 08:38 PHQ-9: PHQ-9 Score PHQ-9: Total score 0 04/14/24 09:08 Depression Screening Interpretation: Negative Thrive Assessment: Date of Thrive Assessment Date Thrive assessed 04/14/24 04/14/24 08:38 Currently or been in a relationship where the following occur: No concerns reported Assessment and Plan Assessment & Plan (1) Hypertension: Code(s): I10 - Essential (primary) hypertension Qualifiers: Hypertension type: essential hypertension Qualified Code(s): I10 - Essential (primary) hypertension (2) CAD (coronary artery disease): Comment: [id number] left-sided plaque of the aortic arch and descending aorta noted on CT angio of the chest and mild coronary artery calcification 05/22/2023, Code(s): I25.10 - Atherosclerotic heart disease of [place] coronary artery without angina pectoris Qualifiers: Coronary Disease-Associated Artery/Lesion type: [place] artery [place] vs. transplanted heart: [place] heart Associated angina: without angina Qualified Code(s): I25.10 - Atherosclerotic heart disease of [place] coronary artery without angina pectoris (3) Hepatic steatosis: Comment: noted on CT angio of chest 05/22/23 Code(s): K76.0 - Fatty (change of) liver, not elsewhere classified (4) Atherosclerotic renal artery stenosis, bilateral: Comment: noted on CT angio of chest 05/22/23, R>L, noted to be severe on R Code(s): I70.1 - Atherosclerosis of renal artery (5) BPH (benign prostatic hyperplasia): Code(s): N40.0 - Benign prostatic hyperplasia without lower urinary tract symptoms Qualifiers: Lower urinary tract symptom presence: symptoms absent Qualified Code(s): N40.0 - Benign prostatic hyperplasia without lower urinary tract symptoms (6) B12 deficiency: Code(s): E53.8 - Deficiency of other specified B group vitamins (7) Folate deficiency: Code(s): E53.8 - Deficiency of other specified B group vitamins (8) IFG (impaired fasting glucose): Code(s): R73.01 - Impaired fasting glucose (9) COPD (chronic obstructive pulmonary disease) with emphysema: Comment: noted on CT angio of chest 05/22/23 Code(s): J43.9 - Emphysema, unspecified Qualifiers: Emphysema type: panlobular Qualified Code(s): J43.1 - Panlobular emphysema (10) Alcohol use: Code(s): Z78.9 - Other specified health status (11) Former smoker: Code(s): Z87.891 - Personal history of nicotine dependence Plan Total time spent caring for the patient today was 55 minutes. This includes time spent before the visit reviewing the chart, time spent during the visit, and time spent after the visit on documentation This note is constructed using voice recognition software. While every effort has been made to ensure accuracy in clock and watch assembler, still errors may have been included Sometimes, these errors may affect the content or meaning of the given sentence . Orders: Orders PSA, Ultra Sensitive Today I10 - Essential (primary) hypertension, I25.10 - Atherosclerotic heart disease of [place] coronary artery without angina pectoris, I70.1 - Atherosclerosis of renal artery, K76.0 - Fatty (change of) liver, not elsewhere classified, N40.0 - Benign prostatic hyperplasia without lower urinary tract symptoms Microalbumin, Random (w Creat) Today I10 - Essential (primary) hypertension, I25.10 - Atherosclerotic heart disease of [place] coronary artery without angina pectoris, I70.1 - Atherosclerosis of renal artery, K76.0 - Fatty (change of) liver, not elsewhere classified, N40.0 - Benign prostatic hyperplasia without lower urinary tract symptoms IRON PROFILE 09/13/24 E53.8 - Deficiency of other specified B group vitamins, I10 - Essential (primary) hypertension, K76.0 - Fatty (change of) liver, not elsewhere classified Vitamin B12 and Folate 09/13/24 E53.8 - Deficiency of other specified B group vitamins, I10 - Essential (primary) hypertension, K76.0 - Fatty (change of) liver, not elsewhere classified Lipid Panel 09/13/24 E53.8 - Deficiency of other specified B group vitamins, I10 - Essential (primary) hypertension, K76.0 - Fatty (change of) liver, not elsewhere classified Comprehensive Met. Panel Today I10 - Essential (primary) hypertension, I25.10 - Atherosclerotic heart disease of [place] coronary artery without angina pectoris, I70.1 - Atherosclerosis of renal artery, K76.0 - Fatty (change of) liver, not elsewhere classified, N40.0 - Benign prostatic hyperplasia without lower urinary tract symptoms Hemoglobin A1c Today I10 - Essential (primary) hypertension, I25.10 - Atherosclerotic heart disease of [place] coronary artery without angina pectoris, I70.1 - Atherosclerosis of renal artery, K76.0 - Fatty (change of) liver, not elsewhere classified, N40.0 - Benign prostatic hyperplasia without lower urinary tract symptoms LDL Cholesterol Direct Today I10 - Essential (primary) hypertension, I25.10 - Atherosclerotic heart disease of [place] coronary artery without angina pectoris, I70.1 - Atherosclerosis of renal artery, K76.0 - Fatty (change of) liver, not elsewhere classified, N40.0 - Benign prostatic hyperplasia without lower urinary tract symptoms TSH reflex Free T4 Today I10 - Essential (primary) hypertension, I25.10 - Atherosclerotic heart disease of [place] coronary artery without angina pectoris, I70.1 - Atherosclerosis of renal artery, K76.0 - Fatty (change of) liver, not elsewhere classified, N40.0 - Benign prostatic hyperplasia without lower urinary tract symptoms Vitamin B12 and Folate Today I10 - Essential (primary) hypertension, I25.10 - Atherosclerotic heart disease of [place] coronary artery without angina pectoris, I70.1 - Atherosclerosis of renal artery, K76.0 - Fatty (change of) liver, not elsewhere classified, N40.0 - Benign prostatic hyperplasia without lower urinary tract symptoms Complete Blood Count no Diff 09/13/24 E53.8 - Deficiency of other specified B group vitamins, I10 - Essential (primary) hypertension, K76.0 - Fatty (change of) liver, not elsewhere classified Comprehensive [place]. Panel Fast 09/13/24 E53.8 - Deficiency of other specified B group vitamins, I10 - Essential (primary) hypertension, K76.0 - Fatty (change of) liver, not elsewhere classified Hemoglobin A1c 09/13/24 E53.8 - Deficiency of other specified B group vitamins, I10 - Essential (primary) hypertension, K76.0 - Fatty (change of) liver, not elsewhere classified Referrals Lung Cancer Screening Referral Z87.891 - Personal history of nicotine dependence Medications: New folic acid 1 mg PO DAILY 90 tabs 2RF metformin ER 750 mg PO QPM 90 tabs 1RF mecobalamin (vitamin B12) (B12 Active) 1,000 mcg PO DAILY 90 tabs 3RF Patient Instructions: Walk-In Care (Urgent Care): We Make it Easy Walk-in for urgent medical issues such as: ? Seasonal Allergies ? Insect Bites ? Cough ? Diarrhea ? Acute Asthma Attacks ? Back, Knee or Joint Pain ? Ear Infection ? Fever without a Rash ? Headaches ? Nausea ? [place], Rash or Skin Irritation ? Sore Throat ? Sports Physicals ? Vomiting Most insurances are accepted. Patients do not need to be part of the [facility] to seek care at the walk-in clinic. Locations [address] [place] [address] , [place] [address] ? [phone] [facility] Walk-In Care in [place] provides services to ages 18 and over. Open Saturday-Saturday: 8 a.m. to 5 p.m. and Saturday: 9 a.m. to 3 p.m.* *Hours may vary due to staffing availability. To confirm Walk-In Care hours in [place], please call [phone]. [address] [place] [address] ? [phone] [facility] Walk-In Care in [place] provides services to ages 12 and over. Open Saturday-Saturday: 8 a.m. to 5 p.m. Hours may vary due to staffing availability. To confirm Walk-In Care hours in [place], please call [phone]. LABORATORY SERVICES: [facility] Lab ? Primary Location [address] [facility] Saturday through Saturday 6:00 AM ? 5:00 PM Saturday 7:00 AM ? 11:00 AM* [phone] The [facility] Lab is centrally located near the front entrance of the [facility] for easy outpatient access. Convenient parking is provided for outpatients. *Hours may vary due to staffing availability. To confirm Laboratory hours for any location, please call [phone]. Offsite Location For your convenience, we offer offsite laboratory draw stations at the following locations: [address] [place] [address] ? [facility] [address], [address] [place] [address] Saturday through Saturday 7:30 AM ? 1:00 PM* [phone] *Hours may vary due to staffing availability. To confirm Laboratory hours for any location, please call [phone]. [place] ? [address] Saturday through Saturday 6:00 AM ? 3:30 PM* Saturday 6:30 AM ? 3 PM* [phone] *Hours may vary due to staffing availability. To confirm Laboratory hours for any location, please call [phone] [place] [address] Saturday through Saturday 7:30 AM ? 4:00 PM* [phone] *Hours may vary due to staffing availability. To confirm Laboratory hours for any location, please call [phone] [place] [address] Saturday through 9:00 AM ? 4:00 PM* *Hours may vary due to staffing availability. To confirm Laboratory hours for any location, please call [phone]. Appointments are not necessary. Walk-ins are welcome. Like all the departments throughout the [facility], our Lab undergoes frequent reviews to ensure the quality and accuracy of test results, and our staff takes special pride in its status as a nationally accredited facility. Patient Portal: ONE PATIENT. ONE RECORD. BETTER CARE. [facility] has a fully integrated, cutting- edge mobile electronic health information system that has revolutionized the way we care for our patients and manage our organization. This system improves communication and coordination enabling us to provide safe, higher-quality care, and an overall positive experience for staff and patients. Our first priority, as always, is to deliver the highest quality care possible. The system is running in the background supporting that priority. This portal is for all [facility] services and practices. If you are experiencing any technical difficulties with enrolling or logging into the Patient Portal please complete the [facility] Patient Portal Technical Support Form. [facility] now offers a new secure on-line interactive tool for patients to review their health information ? ?Patient Portal. This interactive web portal will enable patients and their families to take an active role in their care by providing easy, secure access to their health information via the internet. The Patient Portal provides patients with instant access to their health information, including laboratory results, medications, allergies, demographic information, visit history, and more. In addition to managing their own care, parents and health care proxies with authorized consent will appreciate the ability to access the records of those individuals for whom they provide care. Please note: if you wish to gain access (Proxy) to another patient?s portal, you will be required to come to the Medical Records Department in person at [facility]. Both the patient giving proxy access and the proxy will need to provide photo identification and complete the appropriate authorization. The Patient Portal also allows track their appointments online. The [facility] Patient Portal also saves patients time by allowing them to submit updates to their demographic and contact information prior to their visits. Portal email notifications will also alert patients to any new activity on their portal, such as test results and new appointments. In order to initially enroll in the [facility] Patient Portal, you will need to enter some required information including the following: * your [facility] Medical Record number * your personal home email address * name * date of Please note: In order to enroll in the [facility] Patient Portal, we need to have your email address on file in your electronic medical record. ?The email address needs to be specific for one person (yourself) in order for your Portal enrollment to be successful. ?You can update your email address in person with our Registration staff when you are registering for a hospital visit. ?Otherwise, you will need to come to the Health Information Management (Medical Records) Department at [facility]. ?We are open from Saturday ? Saturday from 7:30 a.m. ? 4:30 p.m. ?You will be required to present a photo id. Once you have successfully enrolled in the Patient Portal, you will receive a one-time user id and password for the Portal, sent to your email address. ?This will allow you to log into the Patient Portal within 99 hrs and reset your own logon id and password, and define personal security questions. ?Once your permanent login and password have been set, you can log into the [facility] Patient Portal at any time via the blue button above or from the Portal Logon button on any page of the [facility] website. [facility] encourage all of our patients to enroll in Patient Portal as it presents a valuable opportunity for patients and their families to actively participate in their care and stay healthy Welcome to [facility]. ?We look forward to working with you. Coding Level of Care Code Complex EM visit Add On G2211 Diagnoses Essential hypertension I10 Hypertension type: essential hypertension Coronary artery disease involving [place] coronary artery of [place] heart without angina pectoris I25.10 Coronary Disease-Associated Artery/Lesion type: [place] artery [place] vs. transplanted heart: [place] heart Associated angina: without angina Hepatic steatosis K76.0 Atherosclerotic renal artery stenosis, bilateral I70.1 Benign prostatic hyperplasia without lower urinary tract symptoms N40.0 Lower urinary tract symptom presence: symptoms absent B12 deficiency E53.8 Folate deficiency E53.8 IFG (impaired fasting glucose) R73.01 Panlobular emphysema J43.1 Emphysema type: panlobular Alcohol use Z78.9 Former smoker Z87.891 Additional Codes HERMINIA-7 Assessment Billing - HERMINIA-7 Assessment Tool: HERMINIA-7 Assessment [id number] ([id number])
[2024-04-14 08:27] VITALS: BP 138/70; PULSE 82; RESP 12; O2SAT 96; BMI 34.4
== END 2024-04-14 09:21 | disposition home or self-care (01) ==
PROVIDERS: PCP Nurse Practitioner Family; Visit Provider Nurse Practitioner Family
DX: I10 Essential (primary) hypertension (principal); I25.10 Atherosclerotic heart disease of native coronary artery without angina pectoris; I70.1 Atherosclerosis of renal artery; J43.1 Panlobular emphysema; E53.8 Deficiency of other specified B group vitamins; K76.0 Fatty (change of) liver, not elsewhere classified; N40.0 Benign prostatic hyperplasia without lower urinary tract symptoms; R73.01 Impaired fasting glucose; Z78.9 Other specified health status; Z87.891 Personal history of nicotine dependence
CPT/HCPCS: 99205; G2211

== ENCOUNTER 2024-04-14 09:07 | Outpatient (REF) | payer MEDICARE, BC, SELFPAY ==
[2024-04-14 11:49] LABS: Alanine Aminotransferase 29 U/L (0-40); Albumin Level 4.2 g/dL (3.5-5.0); Alkaline Phosphatase 51 U/L (39-117); Anion Gap 13 (12-20); Aspartate Amino Transferase 21 U/L (5-37); Bilirubin Total 0.4 mg/dL (0.0-1.0); Blood Urea Nitrogen 14 mg/dL (9-16); Calcium 10.3 mg/dL (8.4-10.2); Carbon Dioxide 25 mmol/L (22-29); Chloride 105 mmol/L (96-108); Estimated Glomerular Filt Rate > 60; Glucose Random 173 mg/dL (60-115); Sodium 139 mmol/L (135-145); TSH reflex Free T4 2.95 uIU/mL (0.32-4.0)
[2024-04-14 11:53] LABS: Estimated Average Glucose 117 mg/dL; Hemoglobin A1c % 5.7 % (<6.0)
[2024-04-14 12:09] LABS: Creatinine Urine 148.29 mg/dL; Microalbum/Creatinine Ratio Ur 4.7 ug/mg cr (<30)
[2024-04-14 12:13] LABS: Folate 3.3 ng/mL (> or = 4.0); Vitamin B12 193 pg/mL (200-900)
[2024-04-15 09:12] LABS: LDL Cholesterol Direct 80 mg/dL (<100)
[2024-04-19 17:29] LABS: PSA, Ultra Sensitive 0.56 ng/mL
== END 2024-04-14 09:08 | disposition home or self-care (01) ==
LOC: HO.WFDLDS 09:07
PROVIDERS: Visit Provider Nurse Practitioner Family
DX: N40.0 Benign prostatic hyperplasia without lower urinary tract symptoms (principal); I70.1 Atherosclerosis of renal artery; K76.0 Fatty (change of) liver, not elsewhere classified; I25.10 Atherosclerotic heart disease of native coronary artery without angina pectoris; I10 Essential (primary) hypertension; Z12.5 Encounter for screening for malignant neoplasm of prostate; Z13.1 Encounter for screening for diabetes mellitus
CPT/HCPCS: 36415; 80053; 82043; 82570; 82607; 82746; 83036; 83721; 84153; 84443

== ENCOUNTER 2024-04-20 08:12 | Outpatient (REF) | payer MEDICARE, BC, SELFPAY ==
[2024-04-20 10:47] LABS: Alanine Aminotransferase 25 U/L (0-40); Albumin Level 4.1 g/dL (3.5-5.0); Alkaline Phosphatase 49 U/L (39-117); Anion Gap 12 (12-20); Aspartate Amino Transferase 18 U/L (5-37); Bilirubin Total 0.6 mg/dL (0.0-1.0); Blood Urea Nitrogen 13 mg/dL (9-16); Calcium 9.7 mg/dL (8.4-10.2); Carbon Dioxide 26 mmol/L (22-29); Chloride 105 mmol/L (96-108); Cholesterol 133 mg/dL (<200); Estimated Glomerular Filt Rate > 60; Glucose Random 126 mg/dL (60-115); HDL Cholesterol 38 mg/dL (>40); LDL Cholesterol Calculated 79 mg/dL (<100); Potassium 4.2 mmol/L (3.3-5.1); Sodium 139 mmol/L (135-145); Total Protein 6.9 g/dL (6.5-8.0); Triglycerides 84 mg/dL (<150)
== END 2024-04-20 08:13 | disposition home or self-care (01) ==
LOC: HO.HMGCLDS 08:12
PROVIDERS: PCP Nurse Practitioner Family; Visit Provider Nurse Practitioner Family
DX: I71.40 Abdominal aortic aneurysm, without rupture, unspecified (principal); I42.8 Other cardiomyopathies
CPT/HCPCS: 36415; 80053; 80061

== ENCOUNTER 2024-05-07 08:46 | Outpatient (AMB) | payer MEDICARE, BC, SELFPAY ==
--- NOTE | 2024-05-07 08:48 | A.OFFVIS_ITS ---
Vital Signs 05/07/24 08:49 Height 5 ft 8 in Weight 230 lb 2.601 oz BMI 35.0 BP 140/72 H Blood Pressure Location Lt brachial Position Sitting Pulse 72 Pulse Source Pulse Oximeter Intake Visit Reasons: 6 mth f/ up Manager Immunology Required: No Allergies lisinopril Allergy (Unknown, Verified 05/07/24 08:51) cough, can't sleep Medication List - Last Reconciled 05/07/24 by Isela Thompson NP-C aspirin 81 mg PO DAILY folic acid 1 mg PO DAILY losartan 50 mg PO DAILY mecobalamin (vitamin B12) (B12 Active) 1,000 mcg PO DAILY metformin ER 750 mg PO ONCE metoprolol succinate ER 25 mg PO DAILY omeprazole 20 mg PO DAILY PRN simvastatin 20 mg PO QPM spironolactone 12.5 mg (1/2 x 25 mg) PO DAILY 90 days HPI HPI 6 mth f/ up: Details: Jack is a 73-year-old male with past medical history of hyperlipidemia, hypertension, prior smoking, routine alcohol use, abdominal aortic aneurysm status post stent graft repair, nonischemic cardiomyopathy who presents for follow-up. Today he reports he has been doing well since his last visit in October. He tells me that in March he cut down his alcohol from daily drinking down to 3 days a week. When he drinks he will have beer and some whiskey. No chest discomfort at rest or with activity. No shortness of breath, palpitations, lightheadedness, presyncope, syncope, PND, orthopnea or edema. He is taking all meds as directed. He is using marijuana each night. Tolerates normal ADLs without difficulty. [facility] Medical History Umbilical hernia Indirect left inguinal hernia Diverticulosis Chronic knee pain Osteoarthritis of right knee Osteoarthritis of left knee GERD (gastroesophageal reflux disease) Hypercholesterolemia AAA (abdominal aortic aneurysm) Other cardiomyopathies Adenomatous polyp of colon History of cardiomyopathy Former smoker Abdominal obesity Surgical History History of AAA (abdominal aortic aneurysm) repair History of cholecystectomy H/O colonoscopy Family History Father No problems noted. Mother No problems noted. Family/Other Melanoma Diabetes Hypertension Social History Household Members: Spouse Housing: House 75 years or older and lives alone: No Alcohol intake: current Alcohol intake frequency: 0-2 drinks per day Alcohol type: beer, wine and hard liquor Patient Tobacco Use Status: Former Tobacco user Cigarette Packs Per Day: 1 Years Smoked: 35 +/- e-Cigarette/Vaping Use: Never Used Substance Use Type: Marijuana service: Yes ([employer] 4 years) Current occupational status: retired Current occupation: Right Handed Current occupational exposures/hazards: No Cognitive needs: No Hearing needs: Yes (Hearing aids ) Vision needs: No Review of Systems Const All systems reviewed & are unremarkable except as noted in HPI and below ENT Denies dizziness Card Denies chest pain, Denies chest pain at rest, Denies chest pain with activity, Denies rapid heart rate, Denies pedal edema, Denies edema, Denies leg edema, Denies lightheadedness, Denies palpitations, Denies dyspnea, Denies dyspnea on exertion and Denies orthopnea Resp Denies cough, Denies dyspnea and Denies dyspnea on exertion GI Denies hematochezia and Denies change in stool character Musc Denies abnormal gait, Denies limited range of motion, Denies muscle cramps, Denies muscle weakness, Denies numbness, Denies radiating pain into limb, Denies stiffness and Denies tingling Neuro Denies abnormal gait, Denies dizziness, Denies numbness and Denies tingling Endo Denies palpitations Physical Exam Vital Signs: Last Vital Signs Pulse 72 05/07/24 08:49 BP 140/72 H 05/07/24 08:49 BMI result Body Mass Index 35.0 Const General: cooperative, healthy appearing, comfortable and no acute distress Orientation/consciousness: patient oriented x3 Neck Neck: Yes normal visual inspection and Yes no JVD Resp Effort & Inspection: normal respiratory effort Auscultation: clear to auscultation bilaterally, no crackles, no rales, no rhonchi and no wheezes Cardio Jugular venous distension: no JVD Rate: regular rate Rhythm: regular rhythm Heart sounds: S1 normal heart sound present, S2 normal heart sound present, no murmurs and no rubs Neuro General: patient oriented x3 Extrem General: Yes normal to inspection and No no pedal edema Psych Appearance: grossly normal Mental Status: mental status grossly normal Speech and movement: Normal speech and movement present Assessment & Plan Assessment & Plan (1) NICM (nonischemic cardiomyopathy): Comment: Secondary to alcoholism Code(s): I42.8 - Other cardiomyopathies Category: Medical Plan: History of nonischemic cardiomyopathy most likely related to alcohol use. His EF did improve in the past when he stopped alcohol intake. Eho done 01/01/2023 showed EF 35-40%, mild LVH. At that time he reported drinking wine daily. Repeat echocardiogram done 11/14/2023 showed EF 45-50%, grade 1 diastolic dysfunction. Today he reports that last month he cut down his alcohol intake from 7 days a week down to 3 days a week. He says he is drinking beer and whiskey. Informed that routine alcohol use is likely the cause of his heart weakness and further reduction and cessation is ideally recommended. On examination today with no clinical signs of heart failure. He denies having shortness of breath with activity, PND, orthopnea or leg edema. EKG done last visit showed normal sinus rhythm with nonspecific ST and T-wave abnormality, overall unchanged from last EKG. Pulse is very regular on examination. Labs done 04/20/2024 showed potassium 4.2, creatinine 0.79. Continue losartan and metoprolol XL for neurohormonal modulation. Continue Aldactone, aspirin and simvastatin.Signs and symptoms of heart failure reviewed with him. Cardiology follow-up 1 year, sooner if needed. Will update echo prior to that visit. (2) Alcohol use: Code(s): Z78.9 - Other specified health status Category: Social Hx Plan: Had been daily. He states recent reduction down to 3 days weekly. Patient informed this visit that his alcohol use is most likely contributing to his weak heart. (3) AAA (abdominal aortic aneurysm): Code(s): I71.4 - Abdominal aortic aneurysm, without rupture Category: Medical Qualifiers: Abdominal aorta location: unspecified Presence of rupture: without rupture Qualified Code(s): I71.40 - Abdominal aortic aneurysm, without rupture, unspecified Plan: History of abdominal aortic aneurysm. Underwent EVAR with Dr. Shukla at [facility] on 02/19/2023. CT scan of the chest on 05/22/2023 showed stent graft repair of the abdominal aortic aneurysm with no endoleak or complication. Today he denies any abdominal discomfort. He continues to follow with [facility] provider. (4) Hypertension: Code(s): I10 - Essential (primary) hypertension Category: Medical Qualifiers: Hypertension type: essential hypertension Qualified Code(s): I10 - Essential (primary) hypertension Plan: Initially mildly elevated at 1 40/72, recheck done by me 120/60. No medication changes made. Continue current management with losartan, Aldactone and metoprolol Plan Time spent on chart review, documentation, interview, assessment Orders: Orders CA echo transthoracic complete 04/13/25 Isela Thompson NP-C I42.8 - Other cardiomyopathies Medications: Changed From metformin ER 750 mg PO QPM 90 tabs 1RF To metformin ER 750 mg PO ONCE Lillie Delarosa, SECURITY MESSENGER- Coding Level of Care Code Est Pt Level 3 (65561) Diagnoses NICM (nonischemic cardiomyopathy) I42.8 Alcohol use Z78.9 Abdominal aortic aneurysm (AAA) without rupture, unspecified part I71.40 Abdominal aorta location: unspecified Presence of rupture: without rupture Essential hypertension I10 Hypertension type: essential hypertension Time Spent (min) 24
[2024-05-07 08:49] VITALS: BP 140/72; PULSE 72; BMI 35.0
== END 2024-05-07 09:24 | disposition home or self-care (01) ==
PROVIDERS: PCP Registered Nurse; Visit Provider Nurse Practitioner Family
DX: I42.8 Other cardiomyopathies (principal); Z78.9 Other specified health status; I71.40 Abdominal aortic aneurysm, without rupture, unspecified; I10 Essential (primary) hypertension
CPT/HCPCS: 99213

== ENCOUNTER → 2024-05-07 08:46 | Outpatient (BNVA) | payer MEDICARE, BC, SELFPAY | PROVIDERS: PCP Registered Nurse; Visit Provider Nurse Practitioner Family | DX: I10 Essential (primary) hypertension (principal); E78.5 Hyperlipidemia, unspecified; I71.40 Abdominal aortic aneurysm, without rupture, unspecified; I42.8 Other cardiomyopathies; Z78.9 Other specified health status | CPT/HCPCS: 99212 ==

== ENCOUNTER 2024-09-16 08:49 | Outpatient (REF) | payer MEDICARE, BC, SELFPAY ==
[2024-09-16 10:28] LABS: Hematocrit 43.5 % (42.0-52.0); Hemoglobin 14.9 g/dl (14.0-18.0); Mean Corpuscular HGB Conc 34.3 g/dl (31.0-36.0); Mean Corpuscular Volume 93.5 fL (80.0-98.0); Mean Platelet Volume 9.6 fL (9.4-12.4); Platelet Count 160 X10*3/uL (160-400); Red Blood Count 4.65 X10*6/uL (4.60-5.80); Red Cell Distribution Width 13.4 % (11.0-16.0); White Blood Count 5.2 X10*3/uL (4.8-10.8)
[2024-09-16 10:35] LABS: Estimated Average Glucose 120 mg/dL; Hemoglobin A1C 148.3558 umol/L; Hemoglobin A1c % 5.8 % (<6.0)
[2024-09-16 10:45] LABS: Alanine Aminotransferase 24 U/L (0-40); Albumin Level 4.2 g/dL (3.5-5.0); Alkaline Phosphatase 57 U/L (39-117); Anion Gap 12 (12-20); Aspartate Amino Transferase 24 U/L (5-37); Bilirubin Total 0.5 mg/dL (0.0-1.0); Blood Urea Nitrogen 12 mg/dL (9-16); Calcium 9.9 mg/dL (8.4-10.2); Carbon Dioxide 25 mmol/L (22-29); Chloride 106 mmol/L (96-108); Cholesterol 133 mg/dL (<200); Estimated Glomerular Filt Rate > 60; Glucose Fasting 120 mg/dL (60-99); HDL Cholesterol 41 mg/dL (>40); Iron 98 mcg/dL (45-160); LDL Cholesterol Calculated 64 mg/dL (<100); Percent Iron Saturation 30 % (15-50); Potassium 4.3 mmol/L (3.3-5.1); Sodium 139 mmol/L (135-145); Total Iron Binding Capacity 327 mcg/dL (228-428); Total Protein 7.2 g/dL (6.5-8.0); Triglycerides 141 mg/dL (<150); Unsaturated Iron Binding 229 ug/dL
[2024-09-16 11:20] LABS: Folate 13.6 ng/mL (> or = 4.0); Vitamin B12 511 pg/mL (200-900)
== END 2024-09-16 08:50 | disposition home or self-care (01) ==
LOC: HO.HMGCLDS 08:49
PROVIDERS: PCP Nurse Practitioner Family; Visit Provider Nurse Practitioner Family
DX: I10 Essential (primary) hypertension (principal); K76.0 Fatty (change of) liver, not elsewhere classified; E53.8 Deficiency of other specified B group vitamins; Z13.1 Encounter for screening for diabetes mellitus
CPT/HCPCS: 36415; 80053; 80061; 82607; 82746; 83036; 83540; 85027

== ENCOUNTER 2024-09-18 09:58 | Outpatient (AMB) | payer MEDICARE, BC, SELFPAY ==
--- NOTE | 2024-09-18 10:31 | MHC.PC.OV ---
Vital Signs 09/18/24 10:36 Height 5 ft 8 in Weight 228 lb 8 oz BMI 34.7 BP 138/76 Blood Pressure Location Lt brachial Position Sitting Pulse 77 Pulse Source Pulse Oximeter Pulse Oximetry (%) 98 Oxygen Delivery Method Room Air Intake Visit Reasons: rodrigo sandhu [id number] Intake Note: Medicare wellness Habilitative Interventionist Required: No Allergies lisinopril Allergy (Unknown, Verified 09/18/24 10:31) cough, can't sleep Medication List - Last Reconciled 09/21/24 by Anum Ingram MD aspirin 81 mg PO DAILY folic acid 1 mg PO DAILY losartan 50 mg PO DAILY mecobalamin (vitamin B12) (B12 Active) 1,000 mcg PO DAILY metformin ER 750 mg PO ONCE metoprolol succinate ER 25 mg PO DAILY omeprazole 20 mg PO DAILY PRN simvastatin 20 mg PO QPM spironolactone 12.5 mg (1/2 x 25 mg) PO DAILY 90 days Tobacco use date assessed: 04/14/24 Fall risk assessment: No Falls in past year Last assessed Fall Risk: 09/18/24 Dental Screening Dental Screen Date: 04/14/24 HPI HPI Comments History of Present Illness Details 74-year-old male [employer] with agent orange exposure, hyperlipidemia, CAD, PVD, hypertension, prior smoking, daily alcohol use, abdominal aortic aneurysms status post stent graft repair 02/2023, nonischemic cardiomyopathy, obese, GERD, marijuana use, COPD, BPH, diverticulosis, umbilical hernia, indirect left inguinal hernia, hepatic steatosis presenting for AWV Care team reviewed Cardiology-Dr Chatman Vascular-Dr Elizondo Previously saw dermatology 3/3 recall HRA reviewed-stable ETOH use. Declines referral. Independent in ADLS. (-)fall risk Medications reconciled Health Maintenance: Colon UTD PSA UTD Tdap 07/2021 Got flu, covid and rsv vaccine ROS CONSTITUTIONAL: Denies weight loss, fever and chills. HEENT: Denies changes in vision and hearing. RESPIRATORY: Denies SOB and cough. CV: Denies palpitations and CP GI: Denies abdominal pain, nausea, vomiting and diarrhea. : Denies dysuria and urinary frequency. MSK: Denies new myalgia and joint pain. SKIN: Denies rash and pruritus. NEUROLOGICAL: Denies headache PSYCHIATRIC: Denies recent changes in mood. PHYSICAL EXAM: GENERAL: Alert and oriented x 3. NAD EYES: EOMI. Anicteric. HENT: Moist mucous membranes. LUNGS: Clear to auscultation bilaterally. CARDIOVASCULAR: Regular rate and rhythm. No murmur. No JVD. ABDOMEN: Soft, non-tender +bs EXTREMITIES: No edema. Non-tender. SKIN: No rashes or lesions. Warm. NEUROLOGIC: No focal neurological deficits. CN II-XII grossly intact PSYCHIATRIC: Cooperative. Appropriate mood and affect [facility] Medical History (Updated 09/21/24 @ 02:56 by Anum Ingram MD) Encounter for initial annual wellness visit (AWV) in Medicare patient Umbilical hernia Indirect left inguinal hernia Diverticulosis Chronic knee pain Osteoarthritis of right knee Osteoarthritis of left knee GERD (gastroesophageal reflux disease) Hypercholesterolemia AAA (abdominal aortic aneurysm) Other cardiomyopathies Adenomatous polyp of colon History of cardiomyopathy Former smoker Abdominal obesity Surgical History History of AAA (abdominal aortic aneurysm) repair History of cholecystectomy H/O colonoscopy Family History Father No problems noted. Mother No problems noted. Family/Other Melanoma Diabetes Hypertension Social History Household Members: Spouse Housing: House 75 years or older and lives alone: No Alcohol intake: current Alcohol intake frequency: 0-2 drinks per day Alcohol type: beer, wine and hard liquor Patient Tobacco Use Status: Former Tobacco user Cigarette Packs Per Day: 1 Years Smoked: 35 +/- e-Cigarette/Vaping Use: Never Used Substance Use Type: Marijuana service: Yes ([employer] 4 years) Current occupational status: retired Current occupation: Right Handed Current occupational exposures/hazards: No Cognitive needs: No Hearing needs: Yes (Hearing aids ) Vision needs: No Questionnaire Thrive Questionnaire Date Thrive assessed: 04/14/24 HERMINIA-7 AMB Questionnaire HERMINIA-7 Date HERMINIA - 7 assessed: 04/14/24 Source: Developed by Drs. Bulmaro Philippe, Mounika Long, Shay Britton and colleagues, with an educational alla from [employer]. Physical exam (Primary Care) Vital Signs: Last Vital Signs Pulse 77 09/18/24 10:36 BP 138/76 12/06/24 10:36 Pulse Ox 98 09/18/24 10:36 Oxygen Delivery Method Room Air 09/18/24 10:36 BMI result Body Mass Index 34.7 Tobacco/Smoking Status: Tobacco use Status Tobacco use date assessed 04/14/24 09/18/24 10:31 Patient Tobacco Use Status Former Tobacco user 09/18/24 10:38 e-Cigarette/Vaping Use Never Used 09/18/24 10:38 Thrive Assessment: Date of Thrive Assessment Date Thrive assessed 04/14/24 09/18/24 10:31 Coding Level of Care Code Est Pt Level 4 (48412) Diagnoses Encounter for annual wellness visit (AWV) in Medicare patient Z00.00 Assessment & Plan Assessment & Plan (1) Encounter for annual wellness visit (AWV) in Medicare patient: Code(s): Z00.00 - Encounter for general adult medical examination without abnormal findings Category: Medical Plan: Care team reviewed Medications reconciled PMSH reviewed HRA reviewed Continue routine follow up
[2024-09-18 10:36] VITALS: BP 138/76; PULSE 77; O2SAT 98; BMI 34.7
== END 2024-09-18 10:58 | disposition home or self-care (01) ==
PROVIDERS: PCP Nurse Practitioner Family; Visit Provider Internal Medicine
DX: Z00.00 Encounter for general adult medical examination without abnormal findings (principal)

== ENCOUNTER → 2024-09-18 09:58 | Outpatient (BNVA) | payer MEDICARE, BC, SELFPAY | PROVIDERS: PCP Nurse Practitioner Family; Visit Provider Internal Medicine | DX: Z00.00 Encounter for general adult medical examination without abnormal findings (principal) | CPT/HCPCS: 99397 ==

== ENCOUNTER 2025-03-25 09:29 | Outpatient (AMB) | payer MEDICARE, BC, SELFPAY ==
--- NOTE | 2025-03-25 09:31 | A.OFFPC_ITS ---
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 Required: No Allergies lisinopril Allergy (Unknown, Verified 03/25/25 09:47) cough, can't sleep Medication List - Last Reconciled 03/25/25 by Lillie Delarosa, [facility]- aspirin 81 mg PO DAILY folic acid 1 mg PO DAILY losartan 50 mg PO DAILY mecobalamin (vitamin B12) (B12 Active) 1,000 mcg PO DAILY metformin ER 750 mg PO QPM metoprolol succinate ER 25 mg PO DAILY omeprazole 20 mg PO DAILY PRN simvastatin 20 mg PO QPM spironolactone 12.5 mg (1/2 x 25 mg) PO DAILY 90 days Tobacco use date assessed: 03/25/25 Fall risk assessment: No Falls in past year Last assessed Fall Risk: 03/25/25 Dental Screening Dental Screen Date: 03/25/25 Did you have a dental visit in the last 12 months?: Yes Did you have a dental problem in the last 6 months where you did not have access to dental care?: No Was dental information given to patient?: Patient has dentist HPI HPI Comments History of Present Illness Details 74-year-old male [place] [employer] with agent orange exposure, hyperlipidemia, CAD, PVD, hypertension, prior smoking, daily alcohol use, abdominal aortic aneurysms status post stent graft repair 02/2023, nonischemic cardiomyopathy, obese, GERD, marijuana use, COPD, BPH, diverticulosis, umbilical hernia, indirect left inguinal hernia, hepatic steatosis Status post cholecystectomy Health Maintenance: ? Colon + polyp ? Tdap 07/2021, declined Shingles vaccine, recommended PCV sereies Lung cancer screening discussed today: Quit 2000 smoking 1.5 per day x 34 years, not a candidate for this. Specialists: Cards appt next month, Echo scheduled. Vascular Dr Felipa Shukla Here today for chronic conditions mgmt: Overall he feels like he is in good health. He does not like going for tests, looking for problems, or taking medications he does not have to. Be that as it may he is tolerating compliant of his current therapies. He is longstanding history of daily EtOH use. No interest in reducing. Hyperlipidemia/CAD/PVD managed with simvastatin 20 mg daily - GERD on omeprazole 20 mg daily - Essential hypertension/Cardiomyopathy: Taking spironolactone 25 mg taking every other day as he cannot split to 12.5mg QD; on Metoprolol taking as directed - Skin lesion L jainism there for years, treated by Derm w/ nitrogen in the past - Engages in regular physical activity, reports exertional dyspnea without chest pain - Cannabis used to aid sleep due to pers istent cognitive activity at night - Upcoming cardiology consultation and e chocardiogram Routine f/u with vascular for AAA repair monitoring Pre-DM: Metformin without GI upset w/ Metformin. Also noted to have hepatic steatosis. BMI > 34 Reports wt stable. Quit 2000 smoking 1.5 per day x 34 years Review of Systems - General: Denies significant weight mary nges or chest pain - Respiratory: Reports winded feeling up on exertion; c/o waking with white mucous production - Cardiovascular: Denies chest pain with exertion; denies orthopnea - Gastrointestinal: Denies nausea or vom iting - Musculoskeletal: Denies recent falls o r injuries - Neurological: Reports sleep issues due to active thoughts; no recent major neurological changes EXAM: Awake alert NAD scleras nonciteric bilat MMM RRR LS with faint ins wheeze throughout, Dim Abd soft, + hepatomegaly, nontender No edema BLE, skin hairless, white crusty papules noted bilat lower ext, decreased PP bilat Mood and affect appropriate Left jainism no concerning skin lesions Discussion Notes During today's visit, we focused on managing the patient?s chronic conditions, including hyperlipidemia, GERD, and hypertension. I advised the patient to attempt taking spironolactone daily to better manage his symptoms. We also reviewed a persistent head irritation that was previously treated with nitrogen. I recommended consideration of further dermatological evaluation to ensure there are no changes given its persistence - he declined. We discussed the patient?s alcohol use, recommend reduction He admits to some lifestyle stressors but does not seek assistance at this time. 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 Lastly, I suggested adjusting his spironolactone regimen to mitigate potential issues with his respiratory symptoms, hoping it will alleviate morning mucus production. The patient agreed to these changes and has an upcoming cardiology follow-up planned. Assessment and Plan 1. Hyperlipidemia/PVD/CAD - Continue simvastatin; monitor choleste rol 2. Gastroesophageal Reflux Disease (GERD ) - Continue omeprazole 20 mg daily 3. Essential Hypertension/Cardiomyopathy - Increase spironolactone 25 mg dailyl - Maintain losartan and metoprolol - FU with Cards 4. Alcohol Dependence - Monitor 5. Skin Irritation - Consider dermatological reassessment - declined. 6. Chronic Obstructive Pulmonary Disease (COPD) - Monitor respiratory status Cont Metformin d/t IFG at the very least and hepatic steatosis. Cont folic acid 1 mg p.o. daily and B12 1000 mcg p.o. daily Continue follow up with Cardiology and vascular. Continue all her medications without change at this time. LDL goals less than 70, statin is managed by vascular. Patient Instructions - Continue current medications as prescr ibed - Take spironolactone 25 mg daily instea d of every other day - Get blood work done today - Monitor for any changes in the irritat ion on the head - Seek dermatology consult if irritation worsens or changes - Return in six months for follow-up for AWV, sooner PRN Consent Patient was informed and verbally consented to the use of an ambient scribe for clinic note documentation during this visit. Total time spent caring for the patient today was 45 minutes. This includes time spent before the visit reviewing the chart, time spent during the visit, and time spent after the visit on documentation, reviewing laboratory results, diagnostic imaging, medications, performing a medically necessary evaluation, counseling on diagnoses, care coordination, ordering appropriate tests, ordering appropriate medications, review of tests performed by other providers, reporting test results with the patient, communication with other healthcare providers. [facility] Medical History (Updated 03/25/25 @ 12:03 by Lillie Delarosa, ARPITA-KATHRYN) AAA (abdominal aortic aneurysm) Abdominal obesity Adenomatous polyp of colon Chronic knee pain Diverticulosis Encounter for initial annual wellness visit (AWV) in Medicare patient Former smoker GERD (gastroesophageal reflux disease) History of cardiomyopathy Hypercholesterolemia Indirect left inguinal hernia Osteoarthritis of left knee Osteoarthritis of right knee Other cardiomyopathies Umbilical hernia Surgical History (Updated 03/25/25 @ 09:57 by ARPITA Benoit-KATHRYN) H/O colonoscopy (~2020) History of AAA (abdominal aortic aneurysm) repair History of cholecystectomy Family History Father No problems noted. Mother No problems noted. Family/Other Melanoma Diabetes Hypertension Social History Household Members: Spouse Housing: House 75 years or older and lives alone: No Alcohol intake: current Alcohol intake frequency: 0-2 drinks per day Alcohol type: beer, wine and hard liquor Patient Tobacco Use Status: Former Tobacco user Cigarette Packs Per Day: 1 Years Smoked: 35 +/- e-Cigarette/Vaping Use: Never Used Substance Use Type: Marijuana service: Yes ([employer] 4 years) Current occupational status: retired Current occupation: Right Handed Current occupational exposures/hazards: No Cognitive needs: No Hearing needs: Yes (Hearing aids ) Vision needs: No Questionnaire PHQ-9 Over the last 2 weeks, how often have you been bothered by any of the following problems? 1. Little interest or pleasure in doing things: not at all 2. Feeling down, depressed, or hopeless: not at all 3. Trouble falling or staying asleep, or sleeping too much: not at all 4. Feeling tired or having little energy: not at all 5. Poor appetite or overeating: not at all 6. Feeling bad about yourself - or that you are a failure or have let yourself or your family down: not at all 7. Trouble concentrating on things, such as reading the newspaper or watching television: not at all 8. Moving or speaking so slowly that other people could have noticed. Or the opposite - being so fidgety or restless that you have been moving around a lot more than usual: not at all 9. Thoughts that you would be better off or of hurting yourself in some way: not at all Total score: 0 Depression Screening Interpretation: Negative Depression Screening Done: Yes 20704 - PHQ-9 Billing: Yes Source: Developed by Drs. Bulmaro Philippe, Mounika Long, Shay Britton and colleagues, with an educational alla from [employer]. Thrive Questionnaire Date Thrive assessed: 03/25/25 I am a: Patient What is your living situation today?: I have a steady place to live Within the past 12 months, did the food you bought not last and you didn't have the money to get more?: Never true Within the past 12 months, did you worry whether your food would run out before you got money to buy more?: Never true Do you have trouble paying for medicines?: No Do you have trouble getting transportation to medical appointments?: No Do you have trouble paying your heating and electricity bill?: No Do you have trouble taking care of your child, family member or friend?: No Do you have trouble with day-to-day activities such as bathing, preparing meals, shopping, managing finances, etc.?: No Are you currently unemployed and looking for a job?: No Are you interested in more education?: No Please select the resources that you would like help with: None Currently or been in a relationship where the following occur: No concerns reported THRIVE Score: 0 AUDIT C Alcohol Use Questionnaire (AUDIT-C) 1. How often do you have a drink containing alcohol?: 4 or more times a week 2. How many drinks containing alcohol do you have on a typical day when you are drinking?: 3 or 4 3. How often do you have six or more drinks on one occasion?: Never Total Score: 5 Score Reviewed/Action Taken: Yes HERMINIA-7 AMB Questionnaire HERMINIA-7 Date HERMINIA - 7 assessed: 03/25/25 Feeling nervous, anxious, or on edge: 0 = Not at all Not being able to stop or control worryin = Not at all Worrying too much about different things: 0 = Not at all Trouble relaxin = Not at all Being so restless that it is hard to sit still: 0 = Not at all Becoming easily annoyed or irritable: 0 = Not at all Feeling afraid as if something awful might happen: 0 = Not at all Total HERMINIA-7 score (0-4 normal; 5-9 mild; 10-14 moderate; 15-21 severe): 0 Source: Developed by Drs. Bulmaro Philippe, Mounika Long, Shay Britton and colleagues, with an educational alla from [employer]. HERMINIA-7 Assessment Billing HERMINIA-7 Assessment Tool: HERMINIA-7 Assessment 02685 Physical exam (Primary Care) Vital Signs: Last Vital Signs Temp 97.6 F 03/25/25 09:35 Pulse 62 03/25/25 09:35 Resp 12 03/25/25 09:35 BP 122/70 03/25/25 09:35 Pulse Ox 95 03/25/25 09:35 Oxygen Delivery Method Room Air 03/25/25 09:35 BMI result Body Mass Index 34.4 BMI Assessment/Plan discussion: High BMI High, discussed plan: lifestyle Tobacco/Smoking Status: Tobacco use Status Tobacco use date assessed 03/25/25 03/25/25 09:36 Patient Tobacco Use Status Former Tobacco user 03/25/25 09:31 e-Cigarette/Vaping Use Never Used 03/25/25 09:31 PHQ-9: PHQ-9 Score PHQ-9: Total score 0 03/25/25 09:47 Depression Screening Interpretation: Negative Thrive Assessment: Date of Thrive Assessment Date Thrive assessed 03/25/25 03/25/25 09:31 Currently or been in a relationship where the following occur: No concerns reported Coding Level of Care Code Est Pt Level 5 (77021) Complex EM visit Add On G2211 Diagnoses Essential hypertension I10 Hypertension type: essential hypertension Hepatic steatosis K76.0 Atherosclerotic renal artery stenosis, bilateral I70.1 Folate deficiency E53.8 IFG (impaired fasting glucose) R73.01 Marijuana use F12.90 Abdominal aortic aneurysm (AAA) without rupture, unspecified part I71.40 Abdominal aorta location: unspecified Presence of rupture: without rupture Alcohol use Z78.9 B12 deficiency E53.8 Coronary artery disease involving [place] coronary artery of [place] heart without angina pectoris I25.10 Coronary Disease-Associated Artery/Lesion type: [place] artery Hoh vs. transplanted heart: [place] heart Associated angina: without angina Panlobular emphysema J43.1 Emphysema type: panlobular Gastroesophageal reflux disease without esophagitis K21.9 Esophagitis presence: without esophagitis Former smoker Z87.891 NICM (nonischemic cardiomyopathy) I42.8 Additional Codes HERMINIA-7 Assessment Billing - HERMINIA-7 Assessment Tool: HERMINIA-7 Assessment 36561 ([id number]) PHQ-9 - 11184 - PHQ-9 Billing: Yes ([id number]) Assessment & Plan Assessment & Plan (1) Hypertension: Code(s): I10 - Essential (primary) hypertension Category: Medical Qualifiers: Hypertension type: essential hypertension Qualified Code(s): I10 - Essential (primary) hypertension (2) Hepatic steatosis: Comment: noted on CT angio of chest 05/22/23 Code(s): K76.0 - Fatty (change of) liver, not elsewhere classified Category: Medical (3) Atherosclerotic renal artery stenosis, bilateral: Comment: noted on CT angio of chest 05/22/23, R>L, noted to be severe on R Code(s): I70.1 - Atherosclerosis of renal artery Category: Medical (4) Folate deficiency: Code(s): E53.8 - Deficiency of other specified B group vitamins Category: Medical (5) IFG (impaired fasting glucose): Code(s): R73.01 - Impaired fasting glucose Category: Medical (6) Marijuana use: Code(s): F12.90 - Cannabis use, unspecified, uncomplicated Category: Social Hx (7) AAA (abdominal aortic aneurysm): Code(s): I71.4 - Abdominal aortic aneurysm, without rupture Category: Medical Qualifiers: Abdominal aorta location: unspecified Presence of rupture: without rupture Qualified Code(s): I71.40 - Abdominal aortic aneurysm, without rupture, unspecified (8) Alcohol use: Code(s): Z78.9 - Other specified health status Category: Social Hx (9) B12 deficiency: Code(s): E53.8 - Deficiency of other specified B group vitamins Category: Medical (10) CAD (coronary artery disease): Comment: [id number] left-sided plaque of the aortic arch and descending aorta noted on CT angio of the chest and mild coronary artery calcification 05/22/2023, Code(s): I25.10 - Atherosclerotic heart disease of [place] coronary artery without angina pectoris Category: Medical Qualifiers: Coronary Disease-Associated Artery/Lesion type: [place] artery Hoh vs. transplanted heart: [place] heart Associated angina: without angina Qualified Code(s): I25.10 - Atherosclerotic heart disease of [place] coronary artery without angina pectoris (11) COPD (chronic obstructive pulmonary disease) with emphysema: Comment: noted on CT angio of chest 05/22/23 Code(s): J43.9 - Emphysema, unspecified Category: Medical Qualifiers: Emphysema type: panlobular Qualified Code(s): J43.1 - Panlobular emphysema (12) GERD (gastroesophageal reflux disease): Code(s): K21.9 - Gastro-esophageal reflux disease without esophagitis Category: Medical Qualifiers: Esophagitis presence: without esophagitis Qualified Code(s): K21.9 - Gastro-esophageal reflux disease without esophagitis (13) Former smoker: Code(s): Z87.891 - Personal history of nicotine dependence Category: Social Hx (14) NICM (nonischemic cardiomyopathy): Comment: Secondary to alcoholism Code(s): I42.8 - Other cardiomyopathies Category: Medical Plan . Orders: Orders Microalbumin, Random (w Creat) Today E53.8 - Deficiency of other specified B group vitamins, I10 - Essential (primary) hypertension, I70.1 - Atherosclerosis of renal artery, K76.0 - Fatty (change of) liver, not elsewhere classified, R73.01 - Impaired fasting glucose Comprehensive Met. Panel Today E53.8 - Deficiency of other specified B group vitamins, I10 - Essential (primary) hypertension, I70.1 - Atherosclerosis of renal artery, K76.0 - Fatty (change of) liver, not elsewhere classified, R73.01 - Impaired fasting glucose Hemoglobin A1c Today E53.8 - Deficiency of other specified B group vitamins, I10 - Essential (primary) hypertension, I70.1 - Atherosclerosis of renal artery, K76.0 - Fatty (change of) liver, not elsewhere classified, R73.01 - Impaired fasting glucose Lipid Panel Today E53.8 - Deficiency of other specified B group vitamins, I10 - Essential (primary) hypertension, I70.1 - Atherosclerosis of renal artery, K76.0 - Fatty (change of) liver, not elsewhere classified, R73.01 - Impaired fasting glucose Vitamin B12 and Folate Today E53.8 - Deficiency of other specified B group vitamins, I10 - Essential (primary) hypertension, I70.1 - Atherosclerosis of renal artery, K76.0 - Fatty (change of) liver, not elsewhere classified, R73.01 - Impaired fasting glucose Medications: Changed From spironolactone 12.5 mg (1/2 x 25 mg) PO DAILY 90 days 45 tabs 3RF I42.8 - Other cardiomyopathies To spironolactone 25 mg PO DAILY 90 days 90 tabs 3RF I42.8 - Other cardiomyopathies
[2025-03-25 09:35] VITALS: BP 122/70; PULSE 62; RESP 12; TEMP 36.4; O2SAT 95; BMI 34.4
== END 2025-03-25 10:15 | disposition home or self-care (01) ==
LOC: HO.HMCFM 09:30
PROVIDERS: PCP Nurse Practitioner Family; Visit Provider Nurse Practitioner Family
DX: I10 Essential (primary) hypertension (principal); K76.0 Fatty (change of) liver, not elsewhere classified; J43.1 Panlobular emphysema; I42.8 Other cardiomyopathies; I70.1 Atherosclerosis of renal artery; E53.8 Deficiency of other specified B group vitamins; R73.01 Impaired fasting glucose; F12.90 Cannabis use, unspecified, uncomplicated; I71.40 Abdominal aortic aneurysm, without rupture, unspecified; Z78.9 Other specified health status; I25.10 Atherosclerotic heart disease of native coronary artery without angina pectoris; K21.9 Gastro-esophageal reflux disease without esophagitis

== ENCOUNTER → 2025-03-25 09:29 | Outpatient (BNVA) | payer MEDICARE, BC, SELFPAY | PROVIDERS: PCP Nurse Practitioner Family; Visit Provider Nurse Practitioner Family ==

== ENCOUNTER 2025-03-25 10:08 | Outpatient (REF) | payer MEDICARE, BC, SELFPAY ==
[2025-03-25 11:35] LABS: Estimated Average Glucose 117 mg/dL; Hemoglobin A1c % 5.7 % (<6.0); Total Hemoglobin (HGBA1C) 3740.1619 umol/L
[2025-03-25 11:51] LABS: Creatinine Urine 137.05 mg/dL; Microalbum/Creatinine Ratio Ur 4.3 ug/mg cr (<30)
[2025-03-25 12:01] LABS: Alanine Aminotransferase 28 U/L (0-40); Albumin Level 4.3 g/dL (3.5-5.0); Alkaline Phosphatase 54 U/L (39-117); Anion Gap 10 (12-20); Aspartate Amino Transferase 26 U/L (5-37); Bilirubin Total 0.6 mg/dL (0.0-1.0); Blood Urea Nitrogen 14 mg/dL (9-16); Calcium 9.5 mg/dL (8.4-10.2); Carbon Dioxide 27 mmol/L (22-29); Chloride 105 mmol/L (96-108); Cholesterol 142 mg/dL (<200); Estimated Glomerular Filt Rate > 60; Glucose Random 144 mg/dL (60-115); HDL Cholesterol 45 mg/dL (>40); LDL Cholesterol Calculated 69 mg/dL (<100); Potassium 3.9 mmol/L (3.3-5.1); Sodium 138 mmol/L (135-145); Total Protein 7.1 g/dL (6.5-8.0); Triglycerides 144 mg/dL (<150)
[2025-03-25 12:39] LABS: Folate 17.9 ng/mL (> or = 4.0); Vitamin B12 507 pg/mL (200-900)
== END 2025-03-25 10:09 | disposition home or self-care (01) ==
LOC: HO.WFDLDS 10:08
PROVIDERS: Visit Provider Nurse Practitioner Family
DX: I10 Essential (primary) hypertension (principal); K76.0 Fatty (change of) liver, not elsewhere classified; I70.1 Atherosclerosis of renal artery; E53.8 Deficiency of other specified B group vitamins; R73.01 Impaired fasting glucose; F12.90 Cannabis use, unspecified, uncomplicated; I71.40 Abdominal aortic aneurysm, without rupture, unspecified; I25.10 Atherosclerotic heart disease of native coronary artery without angina pectoris; J43.1 Panlobular emphysema; K21.9 Gastro-esophageal reflux disease without esophagitis; I42.8 Other cardiomyopathies; Z87.891 Personal history of nicotine dependence; Z78.9 Other specified health status
CPT/HCPCS: 36415; 80053; 80061; 82043; 82570; 82607; 82746; 83036; 96127; 99212

== ENCOUNTER → 2025-04-20 09:42 | Outpatient (REF) | payer MEDICARE, BC, SELFPAY ==
--- NOTE | 2025-04-20 09:45 | CA_ITS ---
Transthoracic Echocardiogram Patient (Last, First, Middle): Jack Monzon, Gender: Male Date of : 1950 Age: 74 Procedure Date: 04/20/2025 Procedure Type: Transthoracic Echocardiogram Location: OP Height: 172. cm Weight: 102.06 kg BSA: 2.14 m2 Heart Rate: 63 bpm BP: 148 / 70 mmHg Derrick Builder: CHERELLE Referring MD: Isela Thompson NP-[employer] Dual Rate Supervisor: Christoph López MD Symptoms: I42.8 - Other cardiomyopathies Study Quality: Fair w/Contrast ECG Rhythm: Sinus Conclusions: - 1. Low normal LV ejection fraction 50-55% with impaired relaxation filling pattern 2. Normal cardiac valvular Dopplers 3. Mildly dilated ascending aorta at 4 cm 4. No gross pericardial effusion Findings Procedure Information Contrast agent, definity, is being given per protocol without apparent complications. Left Ventricle Normal left ventricular cavity size. There is normal left ventricular wall thickness. The left ventricular systolic function is low normal. The visually estimated ejection fraction is between 50-55%. Spectral Doppler is indicative of an impaired relaxation filling pattern. E/E prime ratio is between 8 and 15 consistent with indeterminate filling pressures. Right Ventricle Normal right ventricular cavity size. There is borderline right ventricular systolic function. Atria The left atrium is normal in size. Interatrial shunt cannot be excluded. The right atrium was not well visualized. Aortic Valve Normal aortic valve structure and function. There is no aortic valve stenosis. There is no aortic valve regurgitation. Mitral Valve Likely normal mitral valve structure and function. There is trace mitral valve regurgitation. There is no mitral valve stenosis. Pulmonic Valve The pulmonic valve was not well visualized. Tricuspid Valve The tricuspid valve was not well visualized. Tricuspid regurgitation envelope is inadequate for calculation of right ventricular systolic pressure. Normal right atrial pressure. Great Vessels The pulmonary artery was not well visualized. There is mild dilatation of the ascending aorta measuring 4.00 cm. Venous The inferior vena cava is normal in size and collapses greater than 50% with inspiration. Pericardium/Pleural There is no evidence of pericardial effusion. Prior Study Comparison Changes noted compared to prior study dated: 11/14/2023. LV systolic function has marginally improved. ascending aorta is mildly enlarged on this study Measurements 2D Linear Measurements IVSd: 0.91 0.6-0.9/0.6-1.0 cm LVIDd: 4.46 3.9-5.3/4.2-5.9 cm LVIDd Index: 2.08 2.4-3.2/2.2-3.1 cm/m2 LVIDs: 3.16 2.0-3.6 cm LVPWd: 1.08 0.7-1.1 cm LA Diam: 3.80 2.7-3.8/3.0-4.0 cm LAIDs Index: 1.78 1.5-2.3 cm/m2 LV Mass: 186.16 67-162/88-224 g LV Mass Index: 86.99 43-95/49-115 g/m2 LVOT Diam: 2.40 3.0+(-)1.3 cm 2D Systolic Function EF 4C: 59.50 >55% EF 2C: 50.20 >55% EF BiP: 53.30 >55% Mitral Valve MV Pk E: 0.45 MV PK A: 0.89 MV Decel Time: 366.00 E/A: 0.50 E'Lateral: 6.85 E'Medial: 4.13 E/E' Med: 11.00 E/E' Lat: 6.60 PHT: 107.00 MVA PHT: 2.06 Decel [place]: 1.24 Aortic Valve AoV Pk Isaias: 1.30 AoV Mn Isaias: 0.88 AoV VTI: 0.27 AoV Pk Grad: 7.00 Aov Mn Grad: 4.00 JANETH Cont.VTI: 3.65 LVOT LVOT Pk Isaias: 1.06 LVOT Mn Isaias: 0.68 LVOT VTI: 0.22 LVOT Pk Grad: 4.00 LVOT Mn Grad: 2.00 LVOT Diam: 2.40 LVOT Area: 4.52 Diastolic Function MV Pk E: 0.45 MV Pk A: 0.89 E/A: 0.50 E'Medial: 4.13 E/E' Med: 11.00 E' Laterial: 6.85 E/E' Lat: 6.60 Right Ventricle TAPSE (mm): 17.80 TVS' Isaias: 9.79 Great Vessels Aorta Sinus of Valsalva: 3.60 2.0-3.5 cm Ao Asc: 4.00 2.1-3.4 cm Ao Arch: 3.40 Pulmonary Valve PV Pk Isaias: 0.77 Peak PV Grad: 2.00 Updated in Other Vendor System with Status of Final Christoph López MD electronically signed on 04/20/2025 12:50:19 PM with status of Final
--- OUTSIDE RECORDS SUMMARY | 2025-04-20 10:16 | XMS_ITS | Patient Health Record ---
[facility] Organization [facility] Address [address] [place] [id number] Care Team Providers Care Smeller Name Role Phone Bulmaro Stoll Unavailable [phone] Reason For Referral No Information Plan Of Treatment No Information
== END ==
LOC: HO.CARD 09:42
PROVIDERS: PCP Nurse Practitioner Family; Visit Provider Nurse Practitioner Family
DX: I42.8 Other cardiomyopathies (principal)
CPT/HCPCS: 93306; Q9957

== ENCOUNTER → 2025-04-20 09:45 | Outpatient (BNV) | payer MEDICARE, BC, SELFPAY | PROVIDERS: PCP Nurse Practitioner Family; Visit Provider Internal Medicine Cardiovascular Disease | DX: I42.8 Other cardiomyopathies (principal); I77.810 Thoracic aortic ectasia | CPT/HCPCS: 93306 ==

== ENCOUNTER 2025-05-04 09:12 | Outpatient (AMB) | payer MEDICARE, BC, SELFPAY ==
--- NOTE | 2025-05-04 09:37 | A.OFFVIS_ITS ---
Vital Signs 05/04/25 09:40 Height 5 ft 8 in Weight 226 lb 3.108 oz BMI 34.4 BP 138/62 Blood Pressure Location Lt brachial Position Sitting Pulse 76 Pulse Source Monitor Intake Visit Reasons: 1 yr follow up Tappet Adjuster Required: No Allergies lisinopril Allergy (Unknown, Verified 05/04/25 09:41) cough, can't sleep Medication List - Last Reconciled 05/04/25 by Isela Thompson, LILI-C aspirin 81 mg PO DAILY folic acid 1 mg PO DAILY losartan 50 mg PO DAILY mecobalamin (vitamin B12) (B12 Active) 1,000 mcg PO DAILY metformin ER 750 mg PO QPM metoprolol succinate ER 25 mg PO DAILY omeprazole 20 mg PO DAILY PRN simvastatin 20 mg PO QPM spironolactone 25 mg PO DAILY 90 days HPI HPI 1 yr follow up: Details: Jack is a 74-year-old male with past medical history of hyperlipidemia, hypertension, prior smoking, routine alcohol use, abdominal aortic aneurysm status post stent graft repair, nonischemic cardiomyopathy who presents for follow-up. Today he reports he has been doing well since his last visit 05/07/2024. He admits to ongoing routine alcohol use, at least 3 days weekly, mostly beer. No chest discomfort at rest or with activity. No shortness of breath, palpitations, lightheadedness, presyncope, syncope, PND, orthopnea or edema. He is taking all meds as directed. Tolerates normal ADLs without difficulty. [facility] Medical History Encounter for initial annual wellness visit (AWV) in Medicare patient Umbilical hernia Indirect left inguinal hernia Diverticulosis Chronic knee pain Osteoarthritis of right knee Osteoarthritis of left knee GERD (gastroesophageal reflux disease) Hypercholesterolemia AAA (abdominal aortic aneurysm) Other cardiomyopathies Adenomatous polyp of colon History of cardiomyopathy Former smoker Abdominal obesity Surgical History History of AAA (abdominal aortic aneurysm) repair History of cholecystectomy H/O colonoscopy (~2020) Family History Father No problems noted. Mother No problems noted. Family/Other Melanoma Diabetes Hypertension Social History Household Members: Spouse Housing: House 75 years or older and lives alone: No Alcohol intake: current Alcohol intake frequency: 0-2 drinks per day Alcohol type: beer, wine and hard liquor Patient Tobacco Use Status: Former Tobacco user Cigarette Packs Per Day: 1 Years Smoked: 35 +/- e-Cigarette/Vaping Use: Never Used Substance Use Type: Marijuana service: Yes ([employer] 4 years) Current occupational status: retired Current occupation: Right Handed Current occupational exposures/hazards: No Cognitive needs: No Hearing needs: Yes (Hearing aids ) Vision needs: No Review of Systems Const All systems reviewed & are unremarkable except as noted in HPI and below ENT Denies dizziness Card Denies chest pain, Denies chest pain at rest, Denies chest pain with activity, Denies rapid heart rate, Denies pedal edema, Denies edema, Denies leg edema, Denies lightheadedness, Denies palpitations, Denies dyspnea, Denies dyspnea on exertion and Denies orthopnea Resp Denies cough, Denies dyspnea and Denies dyspnea on exertion GI Denies hematochezia and Denies change in stool character Musc Denies abnormal gait, Denies limited range of motion, Denies muscle cramps, Denies muscle weakness, Denies numbness, Denies radiating pain into limb, Denies stiffness and Denies tingling Neuro Denies abnormal gait, Denies dizziness, Denies numbness and Denies tingling Endo Denies palpitations Physical Exam Vital Signs: Last Vital Signs Pulse 76 05/04/25 09:40 BP 138/62 05/04/25 09:40 BMI result Body Mass Index 34.4 Const General: cooperative, healthy appearing, comfortable and no acute distress Orientation/consciousness: patient oriented x3 Neck Neck: Yes normal visual inspection and Yes no JVD Resp Effort & Inspection: normal respiratory effort Auscultation: clear to auscultation bilaterally, no crackles, no rales, no rhonchi and no wheezes Cardio Jugular venous distension: no JVD Rate: regular rate Rhythm: regular rhythm Heart sounds: S1 normal heart sound present, S2 normal heart sound present, no murmurs and no rubs Neuro General: patient oriented x3 Extrem General: Yes normal to inspection and No no pedal edema Psych Appearance: grossly normal Mental Status: mental status grossly normal Speech and movement: Normal speech and movement present Office Procedures EKG Details: Today, read by me, normal sinus rhythm, nonspecific T-wave abnormality, rate 76, QTC 441 milliseconds [id number], Complete Assessment & Plan Assessment & Plan (1) NICM (nonischemic cardiomyopathy): Comment: Secondary to alcoholism Code(s): I42.8 - Other cardiomyopathies Category: Medical Plan: History of nonischemic cardiomyopathy most likely related to alcohol use. His EF did improve in the past when he stopped alcohol intake. Echocardiogram done 11/14/2023 showed EF 45-50%. Echocardiogram done 04/20/2025 shows EF 50-55%, a scending aorta 4 cm. EKG today normal sinus rhythm, nonspecific T-wave abnormality, rate 76. No clinical signs of heart failure on examination. Labs 03/25/2025 creatinine 0.7. Continue losartan and metoprolol XL for neurohormonal modulation. Continue Aldactone, aspirin and simvastatin. Signs and symptoms of heart failure reviewed with him. Cardiology follow-up 1 year, sooner if needed. (2) Alcohol use: Code(s): Z78.9 - Other specified health status Category: Social Hx Plan: Admits to drinking at least 3 days weekly. Patient informed this visit that his alcohol use is most likely contributing to his weak heart. (3) AAA (abdominal aortic aneurysm): Code(s): I71.4 - Abdominal aortic aneurysm, without rupture Category: Medical Qualifiers: Abdominal aorta location: unspecified Presence of rupture: without rupture Qualified Code(s): I71.40 - Abdominal aortic aneurysm, without rupture, unspecified Plan: History of abdominal aortic aneurysm. Underwent EVAR with Dr. Shukla at [facility] on 02/19/2023. CT scan of the chest on 05/22/2023 showed stent graft repair of the abdominal aortic aneurysm with no endoleak or complication. Currently no abdominal discomfort. He continues to follow with [facility] provider. - recent echo showing ascending aorta 4 cm. Will follow with periodic echo (4) Hypertension: Code(s): I10 - Essential (primary) hypertension Category: Medical Qualifiers: Hypertension type: essential hypertension Qualified Code(s): I10 - Essential (primary) hypertension Plan: Blood pressure goal less than 130/80. Blood pressure today 138/62. Recent office check 122/70. No medication changes made. Reviewed low-salt diet. Plan Time spent on chart review, documentation, interview, assessment Coding Level of Care Code Est Pt Level 4 (71916) Complex EM visit Add On G2211 Diagnoses NICM (nonischemic cardiomyopathy) I42.8 Alcohol use Z78.9 Abdominal aortic aneurysm (AAA) without rupture, unspecified part I71.40 Abdominal aorta location: unspecified Presence of rupture: without rupture Essential hypertension I10 Hypertension type: essential hypertension CPT Codes EKG - CPT: 54158-[id number], Complete ([id number]) Time Spent (min) 28
[2025-05-04 09:40] VITALS: BP 138/62; PULSE 76; BMI 34.4
--- OUTSIDE RECORDS SUMMARY | 2025-05-04 09:45 | XMS_ITS | Patient Health Record ---
Author Organization [facility] Address [address] [place] [id number] Care Team Providers Care Cemetery Laborer Name Role Phone Bulmaro Stoll Unavailable [phone] Reason For Referral No Information Plan Of Treatment No Information
== END 2025-05-04 10:07 | disposition home or self-care (01) ==
LOC: HO.HCS 09:13
PROVIDERS: PCP Nurse Practitioner Family; Visit Provider Nurse Practitioner Family
DX: I42.8 Other cardiomyopathies (principal); Z78.9 Other specified health status; I71.40 Abdominal aortic aneurysm, without rupture, unspecified; I10 Essential (primary) hypertension
CPT/HCPCS: 93010; 99214; G2211

== ENCOUNTER → 2025-05-04 09:12 | Outpatient (BNVA) | payer MEDICARE, BC, SELFPAY | PROVIDERS: PCP Nurse Practitioner Family; Visit Provider Nurse Practitioner Family | DX: I42.8 Other cardiomyopathies (principal); I71.40 Abdominal aortic aneurysm, without rupture, unspecified; I10 Essential (primary) hypertension; R94.31 Abnormal electrocardiogram [ECG] [EKG]; Z78.9 Other specified health status | CPT/HCPCS: 93005; 99212 ==

== ENCOUNTER 2025-08-16 09:30 | Outpatient (REF) | payer MEDICARE, BC, SELFPAY ==
--- NOTE | ~2025-08-16 | XR_ITS ---
EXAMINATION: XR SHOULDER, LEFT CLINICAL INFORMATION: M25.512 - Pain in left shoulder COMPARISON: None available. TECHNIQUE: AP view in neutral, internal rotation and Y-view projections of the left shoulder. FINDINGS: No acute fracture or dislocation. Degenerative changes in the acromion clavicular joint and glenohumeral joint. Punctate calcifications in the supraspinatus tendon insertion. Osteopenia versus osteoporosis. No gross lytic or blastic lesions. XR/XR shoulder LT min 2V IMPRESSION: Degenerative changes, left shoulder. Probable calcific tendinosis/tendinopathy, supraspinatus. Electronically signed by: Domo Garrido MD 08/16/2025 10:34 AM JOHN
== END 2025-08-16 09:31 | disposition home or self-care (01) ==
LOC: HO.HMGCX 09:30
PROVIDERS: PCP Nurse Practitioner Family; Visit Provider Nurse Practitioner Family
DX: M25.512 Pain in left shoulder (principal)
CPT/HCPCS: 73030; 96127; 99212

== ENCOUNTER 2025-08-16 09:30 | Outpatient (AMB) | payer MEDICARE, BC, SELFPAY ==
--- NOTE | 2025-08-16 09:32 | A.OFFPC_ITS ---
Vital Signs 3 08/16/25 09:36 Height 5 ft 8 in Weight 228 lb 6 oz BMI 34.7 BP 122/72 Blood Pressure Location Lt brachial Position Sitting Respiration 12 Pulse 78 Pulse Source Pulse Oximeter Temp 97.2 F Temp Source Oral Pulse Oximetry (%) 99 Oxygen Delivery Method Room Air Intake Visit Reasons: shoulder pain Intake Note: Patient c/o left shoulder px 2 weeks. Safety Deposit Clerk Required: No Allergies lisinopril Allergy (Unknown, Verified 08/16/25 09:42) cough, can't sleep Medication List - Last Reconciled 08/16/25 by Lillie Delarosa, AIR BRAKE TESTER- aspirin 81 mg PO DAILY folic acid 1 mg PO DAILY losartan 50 mg PO DAILY mecobalamin (vitamin B12) (B12 Active) 1,000 mcg PO DAILY metformin ER 750 mg PO QPM metoprolol succinate ER 25 mg PO DAILY omeprazole 20 mg PO DAILY PRN simvastatin 20 mg PO QPM spironolactone 25 mg PO DAILY 90 days Tobacco use date assessed: 08/16/25 Fall risk assessment: No Falls in past year Last assessed Fall Risk: 08/16/25 Dental Screening Dental Screen Date: 08/16/25 Did you have a dental visit in the last 12 months?: Yes Did you have a dental problem in the last 6 months where you did not have access to dental care?: No Was dental information given to patient?: Patient has dentist HPI HPI Comments 2 History of Present Illness0 Details 74-year-old male [employer] with agent orange exposure, hyperlipidemia, CAD, PVD, hypertension, prior smoking, daily alcohol use, abdominal aortic aneurysms status post stent graft repair 02/2023, nonischemic cardiomyopathy, obese, GERD, marijuana use, COPD, BPH, diverticulosis, umbilical hernia, indirect left inguinal hernia, hepatic steatosis Status post cholecystectomy History of Present Illness The patient is a 74-year-old male presenting with left shoulder pain. Left shoulder pain: - The patient reports the onset of left shoulder pain approximately 2-3 weeks ago. - He awoke with the pain without a speci fic inciting event or injury, noting he had been doing his usual yard work. - Initially, both shoulders were painful , but the right shoulder pain has since resolved. - The pain is localized to the lateral a spect of the left shoulder. - Symptoms are worse at rest and after a ctivity, but are less noticeable during physical activity such as yard work. - Night pain was initially present but h as improved, though he can experience sharp pain if he rolls over on it. - The patient notes that pain is aggrava ariadna by attempting to lift a bed sheet. - He has tried Aleve with inconsistent r elief. - The patient received a COVID-19 vaccin ation in the left arm on July 16, about two weeks after a flu shot in the right arm, and questions if there is a relation. - He has attempted to go to the gym but experienced increased pain with shoulder exercises, particularly overhead movements. Past Medical History - Vaccinations: Received a COVID-19 shot in the left arm on July 16 and a flu shot in the right arm approximately two weeks prior. Review of Systems - Musculoskeletal: Reports aggravating p ain in the left shoulder for 2-3 weeks, worse at rest and with certain movements. Denies a specific injury. Medical Decision Making The patient is a 74-year-old male with a 2- to 3-week history of left shoulder pain of subacute onset without a clear traumatic trigger. His symptoms are worse at rest and provoked by specific movements, including abduction, forward flexion, and internal rotation. Physical exam findings of lateral point tenderness and a positive empty can test are suggestive of rotator cuff pathology, such as tendinopathy or a tear. The differential diagnosis also includes bursitis, given the point tenderness, and underlying glenohumeral arthritis. While the patient's recent COVID-19 vaccine in the ipsilateral arm could have caused a localized inflammatory reaction, the persistence and nature of the symptoms warrant further investigation. An X-ray of the left shoulder is the appropriate initial imaging study to assess for bony abnormalities or significant arthritic changes. The results will guide further management, and the patient has been advised to avoid provocative activities in the interim. Plan 1. Left Shoulder Pain - The differential diagnosis includes ro tator cuff pathology, bursitis, and arthritis. - An X-ray of the left shoulder will be ordered to evaluate the joint and bony structures. - The patient is advised to avoid activi ties at the gym that cause pain and not to push through discomfort. - Follow-up will occur via the patient p ortal to discuss the X-ray results and formulate the next steps in management. Patient Instructions - Please go for an X-ray of your left sh oulder. You can have this done at the outpatient facility in [place]. - If you go to the gym, do not do any ex ercises that cause pain in your shoulder. It is important not to push through the pain. - Once the X-ray results are available, I will send you a message through the patient portal to discuss the findings and our plan. Consent The plan to obtain an X-ray of the left shoulder was discussed with the patient. The patient understood the reason for the imaging and agreed to proceed, stating, I figure that's what we're going to have to do. Patient was informed and verbally consented to the use of an ambient scribe for clinic note documentation during this visit. [facility] Medical History Encounter for initial annual wellness visit (AWV) in Medicare patient Umbilical hernia Indirect left inguinal hernia Diverticulosis Chronic knee pain Osteoarthritis of right knee Osteoarthritis of left knee GERD (gastroesophageal reflux disease) Hypercholesterolemia AAA (abdominal aortic aneurysm) Other cardiomyopathies Adenomatous polyp of colon History of cardiomyopathy Former smoker Abdominal obesity Surgical History History of AAA (abdominal aortic aneurysm) repair History of cholecystectomy H/O colonoscopy (~2020) Family History Father No problems noted. Mother No problems noted. Family/Other Melanoma Diabetes Hypertension Social History Household Members: Spouse Housing: House 75 years or older and lives alone: No Alcohol intake: current Alcohol intake frequency: 0-2 drinks per day Alcohol type: beer, wine and hard liquor Patient Tobacco Use Status: Former Tobacco user Cigarette Packs Per Day: 1 Years Smoked: 35 +/- Packs Per Year: 0 e-Cigarette/Vaping Use: Never Used Substance Use Type: Marijuana service: Yes ([employer] 4 years) Current occupational status: retired Current occupation: Right Handed Current occupational exposures/hazards: No Cognitive needs: No Hearing needs: Yes (Hearing aids ) Vision needs: No Questionnaire PHQ-9 Over the last 2 weeks, how often have you been bothered by any of the following problems? 1. Little interest or pleasure in doing things: not at all 2. Feeling down, depressed, or hopeless: not at all 3. Trouble falling or staying asleep, or sleeping too much: not at all 4. Feeling tired or having little energy: not at all 5. Poor appetite or overeating: not at all 6. Feeling bad about yourself - or that you are a failure or have let yourself or your family down: not at all 7. Trouble concentrating on things, such as reading the newspaper or watching television: not at all 8. Moving or speaking so slowly that other people could have noticed. Or the opposite - being so fidgety or restless that you have been moving around a lot more than usual: not at all 9. Thoughts that you would be better off or of hurting yourself in some way: not at all Total score: 0 Depression Screening Interpretation: Negative Depression Screening Done: Yes 37666 - PHQ-9 Billing: Yes Source: Developed by Drs. Bulmaro Philippe, Mounika Long, Shay Britton and colleagues, with an educational alla from [employer]. Thrive Questionnaire Date Thrive assessed: 03/19/25 I am a: Patient What is your living situation today?: I have a steady place to live Within the past 12 months, did the food you bought not last and you didn't have the money to get more?: Never true Within the past 12 months, did you worry whether your food would run out before you got money to buy more?: Never true Do you have trouble paying for medicines?: No Do you have trouble getting transportation to medical appointments?: No Do you have trouble paying your heating and electricity bill?: No Do you have trouble taking care of your child, family member or friend?: No Do you have trouble with day-to-day activities such as bathing, preparing meals, shopping, managing finances, etc.?: No Are you currently unemployed and looking for a job?: No Are you interested in more education?: No Please select the resources that you would like help with: None Currently or been in a relationship where the following occur: No concerns reported THRIVE Score: 0 HERMINIA-7 AMB Questionnaire HERMINIA-7 Date HERMINIA - 7 assessed: 03/25/25 Source: Developed by Drs. Bulmaro Philippe, Mounika Long, Shay Britton and colleagues, with an educational alla from [employer]. Physical exam (Primary Care) Vital Signs: Last Vital Signs Temp 97.2 F 08/16/25 09:36 Pulse 78 08/16/25 09:36 Resp 12 08/16/25 09:36 BP 122/72 08/16/25 09:36 Pulse Ox 99 08/16/25 09:36 Oxygen Delivery Method Room Air 08/16/25 09:36 BMI result Body Mass Index 34.7 Tobacco/Smoking Status: Tobacco use Status Tobacco use date assessed 08/16/25 08/16/25 09:38 Patient Tobacco Use Status Former Tobacco user 08/16/25 09:38 e-Cigarette/Vaping Use Never Used 08/16/25 09:38 PHQ-9: PHQ-9 Score PHQ-9: Total score 0 08/16/25 09:38 Depression Screening Interpretation: Negative Thrive Assessment: Date of Thrive Assessment Date Thrive assessed 03/19/25 08/16/25 09:38 Currently or been in a relationship where the following occur: No concerns reported Extrem Left upper extremity: normal to inspection, normal capillary refill, no joint enlargement and shoulder/upper arm Details: inspection abnormal, tenderness Location: over the subacromial bursa, axillary nerve sensory function normal and abnormal ROM Details: pain with active ROM Details: in ABduction and external rotation- Shoulder/upper arm images: 2 1. pain Coding Level of Care Code Est Pt Level 4 (21331) Complex EM visit Add On G2211 Diagnoses Acute pain of left shoulder M25.512 Chronicity: acute Additional Codes PHQ-9 - 65456 - PHQ-9 Billing: Yes ([id number]) Assessment & Plan Assessment & Plan (1) Left shoulder pain: Code(s): M25.512 - Pain in left shoulder Qualifiers: Chronicity: acute Qualified Code(s): M25.512 - Pain in left shoulder Plan . Orders: Orders 2 XR shoulder LT min 2V Today M25.512 - Pain in left shoulder
[2025-08-16 09:36] VITALS: BP 122/72; PULSE 78; RESP 12; TEMP 36.2; O2SAT 99; BMI 34.7
--- OUTSIDE RECORDS SUMMARY | 2025-08-16 10:45 | XMS_ITS | Patient Health Record ---
Author Organization [facility] Address [address] [place] [id number] Care Team Providers Care Mogul Operator Name Role Phone Bulmaro Stoll Unavailable [phone] Reason For Referral No Information Plan Of Treatment No Information
== END 2025-08-16 09:57 | disposition home or self-care (01) ==
LOC: HO.HMCFM 09:30
PROVIDERS: PCP Nurse Practitioner Family; Visit Provider Nurse Practitioner Family
DX: M25.512 Pain in left shoulder (principal)

== ENCOUNTER → 2025-08-16 10:22 | Outpatient (BNV) | payer MEDICARE, BC, SELFPAY | PROVIDERS: PCP Nurse Practitioner Family; Visit Provider Radiology Diagnostic Radiology | DX: M25.512 Pain in left shoulder (principal) | CPT/HCPCS: 73030 ==

== ENCOUNTER 2025-09-27 09:06 | Outpatient (REF) | payer MEDICARE, BC, SELFPAY ==
[2025-09-27 11:20] LABS: Hematocrit 45.2 % (42.0-52.0); Hemoglobin 15.2 g/dl (14.0-18.0); Mean Corpuscular HGB Conc 33.6 g/dl (31.0-36.0); Mean Corpuscular Hemoglobin 32.3 pg (27.0-33.0); Mean Corpuscular Volume 96.2 fL (80.0-98.0); NRBC Abs Auto 0.000 X10*3/uL (0.0-0.012); NRBC Pct Auto 0.0 /100WBC (0.0-0.2); Platelet Count 151 X10*3/uL (160-400); Red Blood Count 4.70 X10*6/uL (4.60-5.80); White Blood Count 6.7 X10*3/uL (4.8-10.8)
[2025-09-27 12:55] LABS: Microalbum/Creatinine Ratio Ur 8.5 ug/mg cr (<30)
[2025-09-27 18:54] LABS: Alanine Aminotransferase 40 U/L (0-40); Albumin Level 4.5 g/dL (3.5-5.0); Alkaline Phosphatase 71 U/L (39-117); Anion Gap 10 (12-20); Aspartate Amino Transferase 33 U/L (5-37); Blood Urea Nitrogen 11 mg/dL (9-16); Calcium 10.1 mg/dL (8.4-10.2); Carbon Dioxide 29 mmol/L (22-29); Chloride 103 mmol/L (96-108); Cholesterol 156 mg/dL (<200); Estimated Glomerular Filt Rate > 60; HDL Cholesterol 59 mg/dL (>40); Potassium 4.8 mmol/L (3.3-5.1); Sodium 137 mmol/L (135-145); Total Protein 7.3 g/dL (6.5-8.0); Triglycerides 131 mg/dL (<150)
[2025-09-27 19:25] LABS: Folate 19.7 ng/mL (> or = 4.0); Vitamin B12 598 pg/mL (200-900)
== END 2025-09-27 09:07 | disposition home or self-care (01) ==
LOC: HO.WFDLDS 09:06
PROVIDERS: PCP Nurse Practitioner Family; Visit Provider Nurse Practitioner Family
DX: Z00.00 Encounter for general adult medical examination without abnormal findings (principal); Z12.5 Encounter for screening for malignant neoplasm of prostate; R73.01 Impaired fasting glucose; E53.8 Deficiency of other specified B group vitamins; N40.0 Benign prostatic hyperplasia without lower urinary tract symptoms; I10 Essential (primary) hypertension; Z71.89 Other specified counseling; E66.9 Obesity, unspecified; H26.9 Unspecified cataract; I42.8 Other cardiomyopathies; K76.0 Fatty (change of) liver, not elsewhere classified; J43.9 Emphysema, unspecified; Z87.891 Personal history of nicotine dependence; Z53.20 Procedure and treatment not carried out because of patient's decision for unspecified reasons; Z78.9 Other specified health status; Z79.82 Long term (current) use of aspirin; Z79.899 Other long term (current) drug therapy
CPT/HCPCS: 36415; 80053; 80061; 82043; 82570; 82607; 82746; 84153; 85027

== ENCOUNTER 2025-09-27 09:06 | Outpatient (AMB) | payer MEDICARE, BC, SELFPAY ==
--- NOTE | 2025-09-27 09:09 | A.OFFVIS_ITS ---
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 blood tests can check for these conditions. There are specific times when you should see your provider or receive specific health screenings. The [place] Preventive Services Task Force publishes a list of recommended screenings. Below are screening guidelines for men ages 40 to 64. BLOOD PRESSURE SCREENING Have your blood pressure checked at least once every year. Watch for blood pressure screenings in your area. Ask your provider if you can stop in to have your blood pressure checked. Ask your provider if you need your blood pressure checked more often if: You have diabetes, heart disease, kidney problems, or are overweight or have certain other health conditions You have a first-degree relative with high blood pressure You are Black Your blood pressure top number is from 120 to 129 mm Hg, or the bottom number is from 70 to 79 mm Hg If the top number is 130 mm Hg or greater or the bottom number is 80 mm Hg or greater, this is considered stage 1 hypertension. Schedule an appointment with your provider to learn how you can lower your blood pressure. Effects of age on blood pressure CHOLESTEROL SCREENING Cholesterol screening should begin at age 35 for men with no known risk factors for coronary heart disease. Repeat cholesterol screening should take place: Every 5 years for men with normal cholesterol levels More often if changes occur in lifestyle (including weight gain and diet) More often if you have diabetes, heart disease, kidney problems, or certain other conditions COLORECTAL CANCER SCREENING If you are under age 45, talk to your provider about getting screened. You may need to be screened if you have a strong family history of colon cancer or polyps. Screening may also be considered if you have risk factors such as a history of inflammatory bowel disease or polyps. If you are age 45 to 75, you should be screened for colorectal cancer. There are several screening tests available: A stool-based fecal occult blood (gFOBT) or fecal immunochemical test (FIT) every year A stool sDNA test every 1 to 3 years Flexible sigmoidoscopy every 5 years or every 10 years with stool testing FIT done every year CT colonography (virtual colonoscopy) every 5 years Colonoscopy every 10 years You may need a colonoscopy more often if you have risk factors for colorectal cancer, such as: Ulcerative colitis A personal or family history of colorectal cancer A history of growths in your colon called adenomatous polyps DENTAL EXAM Go to the dentist once or twice every year for an exam and cleaning. Your dentist will evaluate if you have a need for more frequent visits. DIABETES SCREENING All adults who do not have risk factors for diabetes should be screened starting at age 35 and repeated every 3 years. If you have other risk factors for diabetes, such as a first degree relative with diabetes, overweight or obesity, high blood pressure, prediabetes, or a history of heart disease, you may be tested more often. If you are overweight and have other risk factors, such as high blood pressure and are planning to become , screening is recommended. EYE EXAM Have an eye exam every 2 to 4 years ages 40 to 54 and every 1 to 3 years ages 55 to 64. Your provider may recommend more frequent eye exams if you have vision problems or glaucoma risk. Have an eye exam that includes an examination of your retina (back of your eye) at least every year if you have diabetes. IMMUNIZATIONS Commonly needed vaccines include: Flu shot: get one every year COVID-19 vaccine: ask your provider what is best for you Tetanus-diphtheria and acellular pertussis (Tdap) vaccine: have as one of your tetanus-diphtheria vaccines if you did not receive it as an adolescent Tetanus-diphtheria: have a booster (or Tdap) every 10 years Varicella vaccine: receive 2 doses if you never had chickenpox or the varicella vaccine and were born in 1979 or after Hepatitis B vaccine: receive 2, 3, or 4 doses, depending on your exact circumstances, if you did not receive these as a child or adolescent, until age 59 Shingles (herpes zoster) vaccine: at or after age 50 Ask your provider if you should receive other immunizations, especially if you have certain medical conditions, such as diabetes or are at increased risk for some diseases such as pneumonia. INFECTIOUS DISEASE SCREENING Screening for hepatitis C: all adults ages 18 to 79 should get a one-time test for hepatitis C. Screening for human immunodeficiency virus (HIV): all people ages 15 to 65 should get a one-time test for HIV. Depending on your lifestyle and medical history, you may need to be screened for infections such as syphilis, chlamydia, and other infections. LUNG CANCER SCREENING You should have an annual screening for lung cancer with low-dose computed tomography (LDCT) if: You are age 50 to 80 years AND You have a 20 pack-year smoking history AND You currently smoke or have quit within the past 15 years OSTEOPOROSIS SCREENING If you are age 50 to 64 and have risk factors for osteoporosis, you should discuss screening with your provider. Risk factors can include long-term steroid use, low body weight, smoking, heavy alcohol use, having a fracture after age 50, or a family history of hip fracture or osteoporosis. Osteoporosis PHYSICAL EXAM All adults should visit their provider from time to time, even if they are healthy. The purpose of these visits is to: Screen for diseases Assess risk of future medical problems Encourage a healthy lifestyle Update vaccinations and other preventive care services Maintain a relationship with a provider in case of an illness Your height, weight, and body mass index (BMI) should be checked at every exam. During your exam, your provider may ask you about: Depression and anxiety Diet and exercise Alcohol and tobacco use Safety, such as use of seat belts and smoke detectors Your medicines and risk for interactions PROSTATE CANCER SCREENING If you're 55 through 69 years old, before having the test, talk to your provider about the pros and cons of having a PSA test. Ask about: Whether screening decreases your chance of dying from prostate cancer. Whether there is any harm from prostate cancer screening, such as side effects from testing or overtreatment of cancer when discovered. Whether you have a higher risk of prostate cancer than others. If you are age 55 or younger, screening is not generally recommended. You should talk with your provider about if you have a higher risk for prostate cancer. Risk factors include: Having a family history of prostate cancer (especially a brother or father) Being If you choose to be tested, the PSA blood test is repeated over time (yearly or less often), though the best frequency is not known. Prostate examinations are no longer routinely done on men with no symptoms. Prostate cancer SKIN EXAM Your provider may check your skin for signs of skin cancer, especially if you're at high risk. People at high risk include those who have had skin cancer before, have close relatives with skin cancer, or have a weakened immune system. TESTICULAR EXAM The [place] Preventive Services Task Force (USPSTF) now recommends against performing testicular self-exams. Doing testicular self-exams has been shown to have little to no benefit. Quality Reporting (2019) Adult ([facility] 138/12/05/68) Smoking risk assessment performed?: Yes Patient Tobacco Use Status: Former Tobacco user Depression screening performed: Yes Screen Results: Yes Negative screen Recommended changes: lifestyle, weight reduction, dietary, physical activity and alcohol moderation Recommended changes not done: EKG (active w/ cards ) Systolic BP not done?: No Diastolic BP not done?: No BMI screening not done: No BMI High - Follow Up: Yes High-plan Sexual Activity Screening ([facility] 153) Sexually active?: Yes Immunizations ([facility] 147, 117) Annual Influenza Vaccine: Yes Measles Antibody Test: No Mumps Antibody Test: No Rubella Antibody Test: No Varicella Antibody Test: No Anti Hepatitis A IgG Antigen test: No Anti Hepatitis B Virus Surface Ab test: No Fall Risk Screening ([facility] 139) Last assessed Fall Risk: 09/27/25 Fall risk assessment: No Falls in past year Dementia Assessment ([facility] 149) Cognitive assessment recorded: Yes Assessment of cognition with standardized tool: Yes Depression/Bipolar (159/160/161/177) PHQ-9: Total score: 0 Ophthalmol:Cataracts Visual Acuity (133) Visual acuity exam performed: Yes (see resutls ) Coding Level of Care Code Medicare Subsequent (G0439) Est Pt Level 3 (55302) Diagnoses Encounter for subsequent annual wellness visit (AWV) in Medicare patient Z00.00 ACP (advance care planning) Z71.89 Obesity (BMI 30-39.9) E66.9 Cataracts, bilateral H26.9 Alcohol use Z78.9 Essential hypertension I10 Hypertension type: essential hypertension NICM (nonischemic cardiomyopathy) I42.8 IFG (impaired fasting glucose) R73.01 Hepatic steatosis K76.0 Benign prostatic hyperplasia without lower urinary tract symptoms N40.0 Lower urinary tract symptom presence: symptoms absent 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
[2025-09-27 09:14] VITALS: BP 142/72; PULSE 78; RESP 13; TEMP 36.4; O2SAT 95; BMI 38.2
== END 2025-09-27 09:54 | disposition home or self-care (01) ==
LOC: HO.HMCFM 09:07
PROVIDERS: PCP Nurse Practitioner Family; Visit Provider Nurse Practitioner Family
DX: Z00.00 Encounter for general adult medical examination without abnormal findings (principal); J43.9 Emphysema, unspecified; I42.8 Other cardiomyopathies; I10 Essential (primary) hypertension; E66.9 Obesity, unspecified; Z68.38 Body mass index [BMI] 38.0-38.9, adult; R73.01 Impaired fasting glucose; K76.0 Fatty (change of) liver, not elsewhere classified; N40.0 Benign prostatic hyperplasia without lower urinary tract symptoms; Z13.9 Encounter for screening, unspecified; Z87.891 Personal history of nicotine dependence